=== PATIENT | female | born 1990 | race Caucasian/White ===

== ENCOUNTER 2017-10-16 15:58 | Emergency (ER) | payer BC ==
[2017-10-16 16:10] VITALS: O2SAT 100
[2017-10-16] MEDS ORDERED: Sodium Chloride 0.9% 1000 ML 1,000 ML IV STA (16:31)
[2017-10-16] MEDS ORDERED: Sodium Chloride 0.9% 1000 ML 1,000 ML ONE (16:40)
--- NOTE | 2017-10-16 16:40 | ERPHSYRPT ---
- History of Present Illness Time Seen by Provider: 10/16/17 16:16 Source: patient Exam Limitations: no limitations Patient Subjective Stated Complaint: Pt states "I am 5 weeks and I noticed I had blood when I wiped and I am freaking out." Triage Nursing Assessment: Pt alert and oriented X 3, skin pwd. Pt ambulates with an upright steady gait, able to speak in clear full sentences. Physician History: Pt noticed mild vaginal "spotting". blood on wiping paper after urinating just before coming. Her last MP was on September 13. She is [id number], denies abdominal or pelvic pain, cramps, no back pain, urinary complaints, fever, nausea, vomiting or other complaints. Timing/Duration: today Activites at Onset: none Quality: other (denies) Pain Radiation: none Severity of Pain-Max: none Prior abdominal problems: none Sexual intercourse history: single partner Modifying Factors: Improves With: nothing Associated Symptoms: denies symptoms Allergies/Adverse Reactions: latex Allergy (Severe, Verified 10/16/17 16:11) Rash codeine Allergy (Verified 09/10/13 09:24) Home Medications: No Reportable Medications [No Reported Medications] 10/16/17 [History] Hx Tetanus, Diphtheria Vaccination/Date Given: No Hx Influenza Vaccination/Date Given: Yes Hx Pneumococcal Vaccination/Date Given: No - Review of Systems Constitutional: No Symptoms Genitourinary Symptoms: Vaginal Bleeding All Other Systems: Reviewed and Negative - Past Medical History Pertinent Past Medical History: Yes Neurological History: No Pertinent History ENT History: No Pertinent History Cardiac History: No Pertinent History Respiratory History: No Pertinent History Endocrine Medical History: No Pertinent History Musculoskeletal History: No Pertinent History GI Medical History: Other History: No Pertinent History Psycho-Social History: Depression - Past Surgical History Past Surgical History: Yes Neuro Surgical History: No Pertinent History Cardiac: No Pertinent History Respiratory: No Pertinent History Gastrointestinal: No Pertinent History Genitourinary: No Pertinent History Female Surgical History: No Pertinent History Other Surgical History: tonsils - Social History Smoking Status: Current every day smoker How long have you smoked: 13 years Exposure to second hand smoke: Yes Drug Use: none Patient Lives Alone: No - Female History Hx Last Menstrual Period: 09/13/2017 Hx Now: Yes Expected Date of Delivery: 06/20/18 - Nursing Vital Signs Nursing Vital Signs: Initial Vital Signs Temperature 98.9 F 10/16/17 16:03 Pulse Rate 113 H 10/16/17 16:03 Respiratory Rate 16 10/16/17 16:03 Blood Pressure 122/84 10/16/17 16:03 O2 Sat by Pulse Oximetry 100 10/16/17 16:03 Pain Scale Pain Intensity 0 - Physical Exam General Appearance: no apparent distress Eye Exam: eyes nml inspection Ears, Nose, Throat Exam: normal ENT inspection Neck Exam: normal inspection, non-tender, supple Respiratory Exam: normal breath sounds, lungs clear, airway intact, No chest tenderness Cardiovascular Exam: regular rate/rhythm, normal heart sounds, normal peripheral pulses, No murmur Gastrointestinal/Abdomen Exam: soft, normal bowel sounds, No tenderness, No distention, No mass, No guarding, No ecchymosis Pelvic Exam: normal external exam, other (normal exam, cultures done.), No adnexal tenderness, No adnexal mass, No mass, No cervical motion tenderness, No vaginal bleeding, No uterine tenderness, No vaginal discharge Back Exam: normal inspection, No CVA tenderness Extremity Exam: normal inspection Neurologic Exam: alert, oriented x 3, normal mood/affect Skin Exam: normal color, warm, dry, No rash Lymphatic Exam: No adenopathy SpO2 Interpretation: normal SpO2: 100 Oxygen Delivery: Room Air - Course Nursing assessment & vital signs reviewed: Yes - Radiology Ultrasound Exam OB Ultrasound: Other (no visible ) Ordered Tests: Active Orders 24 hr Category Date Time Status IV Insertion STAT Care 10/16/17 16:31 Active NPO (ED) STAT Care 10/16/17 16:31 Active OB <14 WKS 1ST GESTATION [US] Stat Exams 10/16/17 17:00 Taken CBC W DIFF Stat Lab 10/16/17 16:31 Completed CMP Stat Lab 10/16/17 16:31 Completed CULTURE,URINE Stat Lab 10/16/17 15:00 Received HCG, Quantitative (Inhouse) Stat Lab 10/16/17 16:31 Completed Manual Differential NC Stat Lab 10/16/17 16:31 Completed UA W/ MICROSCOPIC Stat Lab 10/16/17 15:00 Completed Urine Triage Profile Stat Lab 10/16/17 17:00 Completed Medication Summary Discontinued Medications Generic Name Dose Route Start Last Admin Trade Name Freq PRN Reason Stop Dose Admin Sodium Chloride 1,000 mls @ 999 mls/hr 10/16/17 16:31 10/16/17 16:49 Sodium Chloride 0.9% 1000 Ml IV 10/16/17 17:31 999 mls/hr .Q1H1M STA Administration Sodium Chloride Confirm 10/16/17 16:40 Sodium Chloride 0.9% 1000 Ml Administered 10/16/17 16:41 Dose 1,000 mls @ ud .ROUTE .STK-MED ONE Rho Immune Globulin 300 mcg 10/16/17 18:06 Rhogam Plus 300 Mcg IM 10/16/17 18:07 .ONCE ONE Lab/Rad Data: Laboratory Result Diagrams 10/16/17 16:31 10/16/17 16:31 Laboratory Results 10/16/17 10/16/17 10/16/17 Range/Units 17:00 16:45 16:31 WBC (4.0-10.5) K/mm3 RBC (4.1-5.4) M/mm3 Hgb (12.0-16.0) gm/dl Hct (35-47) % MCV (78-100) fl MCH (26-32) pg MCHC (32-36) g/dl RDW (11.5-14.0) % Plt Count (150-450) K/mm3 MPV (6-9.5) fl Segmented Neutrophils (36.0-66.0) % Band Neutrophils (0.0-2.0) % Lymphocytes (Manual) (24-44) % Monocytes (Manual) (0.0-12.0) % Atypical Lymphocytes % Platelet Estimate (NORMAL) RBC Morphology Sodium 140 (137-145) mmol/L Potassium 3.1 L (3.5-5.1) mmol/L Chloride 105 (98-107) mmol/L Carbon Dioxide 25 (22-30) mmol/L Anion Gap 14.0 (5-15) MEQ/L BUN 9 (7-17) mg/dL Creatinine 0.62 (0.52-1.04) mg/dL Estimated GFR > 60.0 ML/MIN Glucose 120 H (74-106) mg/dL Calcium 9.2 (8.4-10.2) mg/dL Total Bilirubin 0.30 (0.2-1.3) mg/dL AST 27 (14-36) U/L ALT 8 (0-35) U/L Alkaline Phosphatase 67 (38-126) U/L Serum Total Protein 7.1 (6.3-8.2) g/dL Albumin 4.2 (3.5-5.0) g/dL Beta HCG, Quant 226.78 mIU/ml Ur Collection Type Urine Color (YELLOW) Urine Appearance (CLEAR) Urine pH (5-6) Ur Specific [place] (1.005-1.025) Urine Protein (Negative) Urine Ketones (NEGATIVE) Urine Blood (0-5) Jude/ul Urine Nitrite (NEGATIVE) Urine Bilirubin (NEGATIVE) Urine Urobilinogen (0-1) mg/dL Ur Leukocyte Esterase (NEGATIVE) Urine Microscopic RBC (0-2) /HPF Urine Microscopic WBC (0-5) /HPF Ur Epithelial Cells (FEW) /HPF Urine Bacteria (NEGATIVE) /HPF Urine Mucus (NEGATIVE) /HPF Urine Culture Reflexed (NO) Urine Glucose (NEGATIVE) mg/dL Urine Opiates Level NEGATIVE (NEGATIVE) Ur Methadone NEGATIVE (NEGATIVE) Urine Barbiturates NEGATIVE (NEGATIVE) Ur Phencyclidine (PCP) NEGATIVE (NEGATIVE) Urine Amphetamine NEGATIVE (NEGATIVE) U Benzodiazepine Level NEGATIVE (NEGATIVE) Urine Cocaine NEGATIVE (NEGATIVE) Urine Marijuana (THC) NEGATIVE (NEGATIVE) Specimen Received ABO Group O Rh Factor NEGATIVE Antibody Screen NEGATIVE (NEGATIVE) 10/16/17 10/16/17 Range/Units 16:31 15:00 WBC 8.5 (4.0-10.5) K/mm3 RBC 4.09 L (4.1-5.4) M/mm3 Hgb 12.9 (12.0-16.0) gm/dl Hct 38.8 (35-47) % MCV 94.9 (78-100) fl MCH 31.5 (26-32) pg MCHC 33.2 (32-36) g/dl RDW 12.4 (11.5-14.0) % Plt Count 232 (150-450) K/mm3 MPV 10.9 H (6-9.5) fl Segmented Neutrophils 63 (36.0-66.0) % Band Neutrophils 1 (0.0-2.0) % Lymphocytes (Manual) 29 (24-44) % Monocytes (Manual) 5 (0.0-12.0) % Atypical Lymphocytes 2 % Platelet Estimate NORMAL (NORMAL) RBC Morphology NORMAL Sodium (137-145) mmol/L Potassium (3.5-5.1) mmol/L Chloride (98-107) mmol/L Carbon Dioxide (22-30) mmol/L Anion Gap (5-15) MEQ/L BUN (7-17) mg/dL Creatinine (0.52-1.04) mg/dL Estimated GFR ML/MIN Glucose (74-106) mg/dL Calcium (8.4-10.2) mg/dL Total Bilirubin (0.2-1.3) mg/dL AST (14-36) U/L ALT (0-35) U/L Alkaline Phosphatase (38-126) U/L Serum Total Protein (6.3-8.2) g/dL Albumin (3.5-5.0) g/dL Beta HCG, Quant mIU/ml Ur Collection Type CLEAN CATCH Urine Color YELLOW (YELLOW) Urine Appearance CLOUDY (CLEAR) Urine pH 5.0 (5-6) Ur Specific [place] 1.020 (1.005-1.025) Urine Protein 50 (Negative) Urine Ketones SMALL (NEGATIVE) Urine Blood 50 (0-5) Jude/ul Urine Nitrite NEGATIVE (NEGATIVE) Urine Bilirubin NEGATIVE (NEGATIVE) Urine Urobilinogen NORMAL (0-1) mg/dL Ur Leukocyte Esterase 1+ (NEGATIVE) Urine Microscopic RBC 2-5 (0-2) /HPF Urine Microscopic WBC 2-5 (0-5) /HPF Ur Epithelial Cells MODERATE (FEW) /HPF Urine Bacteria FEW (NEGATIVE) /HPF Urine Mucus MANY (NEGATIVE) /HPF Urine Culture Reflexed YES (NO) Urine Glucose NEGATIVE (NEGATIVE) mg/dL Urine Opiates Level (NEGATIVE) Ur Methadone (NEGATIVE) Urine Barbiturates (NEGATIVE) Ur Phencyclidine (PCP) (NEGATIVE) Urine Amphetamine (NEGATIVE) U Benzodiazepine Level (NEGATIVE) Urine Cocaine (NEGATIVE) Urine Marijuana (THC) (NEGATIVE) Specimen Received 10/16/17 1700 ABO Group Rh Factor Antibody Screen (NEGATIVE) - Progress Progress: improved Air Movement: good Progress Note: 10/16/17 18:36 Pt has been pain free, stable, afebrile, no sign of bleeding. I called Dr Quintero in [place] ( he is covering patient's Fruit Thinner Machine Operator, Dr Patel) discussed our findings, and patient's current condition, he agreed with our plan to discharge her after she was given 300 microgram Rhogam im. to follow up with her next Beta HCG level in 2-3 days with her Fruit Thinner Machine Operator. I informed patient and her mother about these, they agreed. Counseled pt/family regarding: lab results, diagnosis, need for follow-up, rad results - Departure Time of Disposition: 18:39 Departure Disposition: Home Clinical Impression: Vaginal bleeding affecting early Condition: Stable Critical Care Time: No Referrals: CY RAINEY [Primary Care Provider] - Additional Instructions: Rest x 2-3 days, nothing vaginally! Follow up with Fruit Thinner Machine Operator in 2-3 days with Beta HCG level, return if severe pain, bleeding!
[2017-10-16 16:47] LABS: Hematocrit 38.8 % (35-47); Hemoglobin 12.9 gm/dl (12.0-16.0); Mean Cell Volume 94.9 fl (78-100); Mean Corpuscular Hemoglobin 31.5 pg (26-32); Mean Corpuscular Hgb Concent. 33.2 g/dl (32-36); Mean Platelet Volume 10.9 fl (6-9.5); Platelet Count 232 K/mm3 (150-450); Red Blood Count 4.09 M/mm3 (4.1-5.4); Red Cell Distribution Width 12.4 % (11.5-14.0); White Blood Count 8.5 K/mm3 (4.0-10.5)
[2017-10-16 16:49] LABS: ALBUMIN 4.2 g/dL (3.5-5.0); ALKALINE PHOSPHATASE 67 U/L (38-126); BLOOD UREA NITROGEN 9 mg/dL (7-17); CHLORIDE 105 mmol/L (98-107); Calcium 9.2 mg/dL (8.4-10.2); Carbon Dioxide 25 mmol/L (22-30); Creatinine 1 0.62 mg/dL (0.52-1.04); Glucose 120 mg/dL (74-106); Potassium 3.1 mmol/L (3.5-5.1); SGOT/AST 27 U/L (14-36); SGPT/ALT 8 U/L (0-35); SODIUM 140 mmol/L (137-145); Total Protein 7.1 g/dL (6.3-8.2)
[2017-10-16 17:05] LABS: HCG, Quantitative (Inhouse) 226.78 mIU/ml
[2017-10-16 17:19] LABS: Appearance CLOUDY (CLEAR); Bilirubin NEGATIVE (NEGATIVE); Blood 50 Ery/ul (0-5); Glucose NEGATIVE (NEGATIVE); Ketones SMALL (NEGATIVE); Leukocyte Esterase 1+ (NEGATIVE); Nitrite NEGATIVE (NEGATIVE); Protein,Urine Dip 50 (Negative); Urobilinogen NORMAL mg/dL (0-1)
[2017-10-16 17:20] LABS: Bacteria FEW /HPF (NEGATIVE); Epithelial Cells MODERATE /HPF (FEW); Mucus MANY /HPF (NEGATIVE)
[2017-10-16 17:22] LABS: Amphetamine,Urine NEGATIVE (NEGATIVE); Barbiturate,Urine NEGATIVE (NEGATIVE); Benzodiazepine,Urine NEGATIVE (NEGATIVE); Cocaine,Urine NEGATIVE (NEGATIVE); Methadone,Urine NEGATIVE (NEGATIVE); Opiate,Urine NEGATIVE (NEGATIVE); PCP,Urine NEGATIVE (NEGATIVE); THC,Urine NEGATIVE (NEGATIVE)
[2017-10-16 17:43] LABS: ATYPICAL LYMPHS 2 %; BAND 1 % (0.0-2.0); Lymphocytes 29 % (24-44); Monocyte 5 % (0.0-12.0); Neutrophils 63 % (36.0-66.0); Platelet Estimate NORMAL (NORMAL); Total Cells Counted 100
[2017-10-16 17:55] LABS: ABO TYPING O; Antibody Screen NEGATIVE (NEGATIVE); RH TYPING NEGATIVE
[2017-10-16] MEDS ORDERED: Rhogam Plus 300 MCG IM ONE (18:06)
--- NOTE | 2017-10-16 18:36 | XRAY ---
Indication: Vaginal bleeding. Patient reports 4-5 weeks . Two-dimensional transvaginal early OB ultrasound performed. Comparison: None for this . Uterus is anteverted measuring 10.6 x 5.3 x 8.1 cm. Myometrium homogeneous. Endometrial stripe measures 7.1 mm in thickness. No endometrial cavity mass or fluid collection. Right ovary measures 2.9 x 3.7 x 2.0 cm and the left measures 5.0 x 2.6 x 2.6 cm. Normal color perfusion bilaterally. No suspicious adnexal mass. Tiny cul-de-sac fluid presumed from rupture/leaking cyst. Impression: 1. No sonographic evidence for intrauterine or ectopic . 2. Tiny cul-de-sac fluid presumed from rupture/leaking cyst. 3. Remaining transvaginal pelvic sonogram is negative. Comment: Preliminary report was given.
[2017-10-16 19:09] VITALS: BP 120/78; PULSE 90
== END 2017-10-16 19:10 | disposition home or self-care (01) ==
LOC: ED 15:58
DX: O46.91 Antepartum hemorrhage, unspecified, first trimester (principal); Z3A.00 Weeks of gestation of pregnancy not specified
CPT/HCPCS: 36000; 36415; 76801; 80053; 80307; 81000; 84702; 85025; 86850; 86900; 86901; 87086; 96360; 96372; 99283; 99284; J2790

== ENCOUNTER 2020-09-06 09:12 | Day surgery (SDC) | payer BC ==
--- NOTE | 2020-09-06 08:42 | HP ---
DATE OF SURGERY: 09/06/2020 HISTORY OF PRESENT ILLNESS: The patient is a 30 year-old who developed hemorrhoids after second child. She had some rectal bleeding sometimes for a few days. She has recurrent rectal bleeding. She is in need of colonoscopy to rule out other etiology of bleeding as well as possible internal hemorrhoid banding if indicated. PAST MEDICAL HISTORY: She denies any chronic illnesses. PAST SURGICAL HISTORY: She denies any prior endoscopy. MEDICATIONS: None on a regular basis. ALLERGIES: CODEINE. LATEX. FAMILY HISTORY: Negative for colon cancer. SOCIAL HISTORY: No current smoking or alcohol abuse. REVIEW OF SYSTEMS: Fourteen systems reviewed negative or noncontributory as above and per preadmission questionnaire. PHYSICAL EXAMINATION: GENERAL: No acute distress. HEENT: Sclerae nonicteric. NECK: No JVD. CHEST: Equal excursion, nonlabored breathing. CVS: Regular rate and rhythm. ABDOMEN: Soft. No peritoneal signs. EXTREMITIES: No significant edema. NEURO: Alert, oriented, moving extremities symmetrically. RECTAL: Some external tags, no external mass. PSYCH: Appropriate mood and affect. IMPRESSION: Rectal bleeding, history of some hemorrhoid problems in the past. She is in need of colonoscopy to rule out polyps, colitis, inflammatory bowel disease or other etiology as well as possible consideration of possible internal hemorrhoid banding at that time. She was shown the risk sheet and explained the procedure in detail including but not limited to bleeding or infection, risk of bowel injury or perforation possibly requiring open procedure, risk of missed or nondiagnosis or incomplete exam possibly requiring barium enema, other studies or procedures, general risk of anesthesia or sedation. Regarding the possible internal hemorrhoid banding general risk of bleeding or infection, risk of aches, pain, burning, risk of sensory, spasm or irritability, risk of transient continence issues, risk of progression of hemorrhoidal disease possibly requiring other procedures or banding or excision, general risk of aches and pains. She is agreeable to the planned procedure, will proceed with colonoscopy possible internal hemorrhoid banding as an outpatient under MAC anesthesia.
[~2020-09-06 09:12] MED LIST: Lactated Ringers 1,000 ML IV SCH
[2020-09-06] MEDS ORDERED: Lactated Ringers 1,000 ML IV ONE (09:33)
[2020-09-06] MEDS: Versed 2 MG/2 ML Injection IV PRN ×2 (09:56→10:59)
[2020-09-06] MEDS ORDERED: DIPRIVAN 200 MG/20 ML IV ONE ×2 (11:25→11:42)
[2020-09-06] MEDS ORDERED: SUBLIMAZE 100 MCG/2 ML ONE (11:25)
[2020-09-06] MEDS ORDERED: Xylocaine-Mpf 2% 5 Ml Vial ONE (11:26)
[2020-09-06] MEDS ORDERED: Zofran 4 MG/2 ML VIAL ONE (11:45)
[2020-09-06 12:43] VITALS: O2SAT 97
[2020-09-06 12:59] VITALS: BP 117/59; PULSE 80
--- NOTE | 2020-09-07 07:53 | OP ---
SURGERY DATE/TIME: 09/06/2020 1129 PREOPERATIVE DIAGNOSIS: Rectal bleeding unclear etiology and has some internal and external hemorrhoids. POSTOPERATIVE DIAGNOSES: 1) Fair bowel prep. 2) ASA Class I. 3) Photo documented appendiceal orifice and ileocecal valve. 4) Grade II internal hemorrhoids requiring banding as she is having rectal bleeding from it. PROCEDURES: 1) Colonoscopy to cecum with random cold biopsies of colon to evaluate for macroscopic colitis. 2) Internal hemorrhoid banding x3 columns. SURGEON: Dr. Nolan Martinez. [facility] RN: Nilesh Potter, Medical Student III. ANESTHESIA: MAC. ESTIMATED BLOOD LOSS: Minimal. INDICATIONS: As noted above. Risks and benefits explained in detail but not limited to and consent obtained. DESCRIPTION OF PROCEDURE AND FINDINGS: The patient is taken to the operating room. MAC anesthesia introduced. After official time out and no disagreement with planned procedure, digital rectal exam revealed some internal and external hemorrhoids. There was no active bleeding at the moment. Video colonoscope inserted and passed up the tortuous sigmoid, descending, transverse and ascending colon. With external pressure the scope was able to be passed around to the cecum. Appendiceal orifice and valve well visualized and photo documented. The scope is then carefully withdrawn over the next eight minutes. There were no signs of any large polyps, masses or obstructing lesions. Given her symptoms cold biopsies taken to evaluate for microscopic colitis. Otherwise again no signs of any large polyps, masses or obstructing lesions. Back to the rectum on retroflex, she did have some internal and external hemorrhoids. The picture from the retroflexion did not seem to be impressive but once the scope was withdrawn and placed lubricated half-kent retractor she definitely had significant grade II-III internal and external hemorrhoids. It was felt she warranted trial banding. First starting with the left lateral, the suction wafer mounter was used at the top of the hemorrhoid. A good tuft of tissue noted this is again repeated in the right posterior position and then again on the right anterior position with a good tuft of tissue in each location using the suction wafer mounter. The patient tolerated the procedure well. There were no immediate complications. There is no family here available to discuss the findings with at this time. I will see her back in the office next week. She is to continue a high fiber diet and/or Metamucil or Fibercon-type to titrate soft bulky bowel movements. She can use some sitz baths PRN. She may have some initial rectal bleeding that usually improves over time. I will see her back in the office next week.
== END 2020-09-06 13:00 | disposition home or self-care (01) ==
LOC: SDC 09:12
PROVIDERS: ATTEND Surgery
DX: K64.1 Second degree hemorrhoids (principal); K62.5 Hemorrhage of anus and rectum
CPT/HCPCS: 84703; 88305; J2250; J2405; J2704; J3010

== ENCOUNTER 2022-03-17 14:47 | Emergency (ER) | payer BC ==
[2022-03-17 15:35] VITALS: BP 129/79
--- NOTE | 2022-03-17 16:09 | ERPHSYRPT ---
- History of Present Illness Time Seen by Provider: 03/17/22 14:53 Source: patient Exam Limitations: no limitations Patient Subjective Stated Complaint: patient states she saw Dr. Parmar last week and had labs drawn. They called her today and said her hemaglobin was 7.1 a nd to come to ER because she may need a transfusion. Triage Nursing Assessment: Patient is alert and oriented. Ambulated to ER Room with no difficulty. Kirsty has no complaints. Physician History: 31 years old female presented in the ER after she got a call from her doctor about blood work done almost 2 weeks ago that her hemoglobin is 7.1. Patient denies any chest pain palpitations, shortness of breath, feeling dizzy lightheaded. She denies heavy menstrual's cycle, epigastric discomfort, taking excessive amounts of NSAIDs or dark stool. Denies excessively feeling weak fatigued or tiredness. 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 - Vaccination Dates Date of 2cond Vaccination (if applicable): n/a - Review of Systems Constitutional: No Symptoms Eyes: No Symptoms Ears, Nose, & Throat: No Symptoms Respiratory: No Symptoms Cardiac: No Symptoms Abdominal/Gastrointestinal: No Symptoms Genitourinary Symptoms: No Symptoms Musculoskeletal: No Symptoms Skin: No Symptoms Neurological: No Symptoms Psychological: No Symptoms Endocrine: No Symptoms Hematologic/Lymphatic: No Symptoms Immunological/Allergic: No Symptoms - Past Medical History Pertinent Past Medical History: Yes Neurological History: No Pertinent History ENT History: No Pertinent History Cardiac History: No Pertinent History Respiratory History: No Pertinent History Endocrine Medical History: No Pertinent History Musculoskeletal History: No Pertinent History GI Medical History: Other History: No Pertinent History Psycho-Social History: Anxiety, Depression Female Reproductive Disorders: No Pertinent History Other Medical History: hemorrhoids, sometimes bleeding, constipation - Past Surgical History Past Surgical History: Yes Neuro Surgical History: No Pertinent History Cardiac: No Pertinent History Respiratory: No Pertinent History Gastrointestinal: No Pertinent History Genitourinary: No Pertinent History Musculoskeletal: No Pertinent History Female Surgical History: No Pertinent History Other Surgical History: EGD for ulcers about 7 years ago - Social History Smoking Status: Former smoker How long have you smoked: 13 years Exposure to second hand smoke: No Drug Use: none Patient Lives Alone: Yes (spouse, children) - Female History Hx Last Menstrual Period: 02/24/22 Hx Now: No - Nursing Vital Signs Nursing Vital Signs: Initial Vital Signs Pulse Rate 80 03/17/22 15:00 Respiratory Rate 20 03/17/22 15:00 Blood Pressure 129/79 03/17/22 15:00 O2 Sat by Pulse Oximetry 100 03/17/22 15:00 Pain Scale Pain Intensity 0 - Physical Exam General Appearance: no apparent distress, alert Eye Exam: PERRL/EOMI Ears, Nose, Throat Exam: normal ENT inspection, TMs normal, pharynx normal Neck Exam: normal inspection, non-tender, supple, full range of motion Respiratory Exam: normal breath sounds, lungs clear Cardiovascular Exam: regular rate/rhythm, normal heart sounds Gastrointestinal/Abdomen Exam: soft, normal bowel sounds, No tenderness Back Exam: normal inspection, normal range of motion Extremity Exam: normal inspection, normal range of motion Neurologic Exam: alert, oriented x 3, cooperative Skin Exam: normal color SpO2 Interpretation: normal SpO2: 100 O2 Delivery: Room Air Ordered Tests: Active Orders 24 hr Category Date Time Status CBC W DIFF Stat Lab 03/17/22 16:05 Completed CMP Stat Lab 03/17/22 16:36 Completed PROTIME WITH INR Stat Lab 03/17/22 16:36 Completed PTT Stat Lab 03/17/22 16:36 Completed Medication Summary Generic Name Dose Route Start Last Admin Trade Name Viry PRN Reason Stop Dose Admin Ferrous Sulfate 325 mg 03/18/22 17:39 Ferrous Sulfate 325 Mg Tablet PO 03/18/22 17:40 STAT ONE Polysaccharide Iron Complex 150 mg 03/18/22 17:38 03/17/22 17:39 Iron Polysaccharides Complex 150 Mg Capsule PO 03/18/22 17:39 Not Given STAT ONE Lab/Rad Data: Laboratory Result Diagrams 03/17/22 16:05 03/17/22 16:36 Laboratory Results 03/17/22 03/17/22 03/17/22 Range/Units 16:36 16:36 16:05 WBC 6.9 (4.0-10.5) x10^3/uL RBC 3.52 L (4.1-5.4) x10^6/uL Hgb 7.1 L (12.0-16.0) g/dL Hct 27.6 L (35-47) % MCV 78.4 (78-100) fL MCH 20.2 L (26-32) pg MCHC 25.7 L (32-36) g/dL RDW 16.1 H (11.5-14.0) % Plt Count 368 (150-450) x10^3/uL MPV 9.7 (7.5-11.0) fL Gran % 65.4 (36.0-66.0) % Immature Gran % (Auto) 0.3 (0.00-0.4) % Nucleat RBC Rel Count 0.0 (0.00-0.1) % Eos # (Auto) 0.04 (0-0.5) x10^3/uL Immature Gran # (Auto) 0.02 (0.00-0.03) x10^3u/L Absolute Lymphs (auto) 1.74 (1.0-4.6) x10^3/uL Absolute Monos (auto) 0.53 (0.0-1.3) x10^3/uL Absolute Nucleated RBC 0.00 (0.00-0.01) x10^3u/L Lymphocytes % 25.3 (24.0-44.0) % Monocytes % 7.7 (0.0-12.0) % Eosinophils % 0.6 (0.00-5.0) % Basophils % 0.7 (0.0-0.4) % Absolute Granulocytes 4.50 (1.4-6.9) x10^3/uL Basophils # 0.05 (0-0.4) x10^3/uL PT 10.4 (9.4-12.5) SECONDS INR 0.98 (0.8-3.0) APTT 24.4 L (25.1-36.5) SECONDS Sodium 139 (137-145) mmol/L Potassium 4.2 (3.5-5.1) mmol/L Chloride 105 (98-107) mmol/L Carbon Dioxide 28 (22-30) mmol/L Anion Gap 11.3 (5-15) MEQ/L BUN 9 (7-17) mg/dL Creatinine 0.56 (0.52-1.04) mg/dL Estimated GFR > 60.0 ML/MIN Glucose 108 H (74-106) mg/dL Calcium 8.8 (8.4-10.2) mg/dL Total Bilirubin 0.30 (0.2-1.3) mg/dL AST 18 (14-36) U/L ALT 10 (0-35) U/L Alkaline Phosphatase 73 (38-126) U/L Serum Total Protein 7.5 (6.3-8.2) g/dL Albumin 4.4 (3.5-5.0) g/dL - Progress Progress: unchanged Progress Note: 03/17/22 17:42 Patient is asymptomatic. Recheck hemoglobin is 7.[address]iscuss[address]. Mcnamara, do not think patient needs transfusion and recommended starting on iron pills and she is given first dose in here. She is advised not to take any NSAIDs and outpatient follow-up with primary care and hematology. Discussed signs symptoms of worsening needing return to ER which she seems understanding. Discussed with .: Samanta Counseled pt/family regarding: lab results, diagnosis, need for follow-up - Departure Departure Disposition: Home Clinical Impression: Anemia Condition: Stable Critical Care Time: No Referrals: LG MCNAMARA MD [Primary Care Provider] - Follow Up with PCP/3 days LASHONDA HARDEN [COURTESY STAFF] - Follow up/PCP as directed (call for appointment ) Instructions: Anemia Caused by Low Iron, Adult (DC) Additional Instructions: Take high-protein diet. Do not take any NSAIDs. Follow-up with primary care and hematology/oncology for reevaluation and further work-up. Return to ER if having difficulty breathing, chest pain, dizziness, lightheadedness, dark stool, heavy cycles etc. Prescriptions: Ferrous Sulfate 325 mg [Feosol 325 mg] 325 mg PO DAILY 30 Days #30 tablet
[2022-03-17 16:16] LABS: Basophil (Absolute #) 0.05 x10^3/uL (0-0.4); Eosinophil % 0.6 % (0.00-5.0); Eosinophil (Absolute #) 0.04 x10^3/uL (0-0.5); Hematocrit 27.6 % (35-47); Hemoglobin 7.1 g/dL (12.0-16.0); Lymphocyte (Absolute #) 1.74 x10^3/uL (1.0-4.6); Lymphocytes % 25.3 % (24.0-44.0); Mean Cell Volume 78.4 fL (78-100); Mean Corpuscular Hemoglobin 20.2 pg (26-32); Mean Corpuscular Hgb Concent. 25.7 g/dL (32-36); Mean Platelet Volume 9.7 fL (7.5-11.0); Monocyte (Absolute #) 0.53 x10^3/uL (0.0-1.3); Monocytes % 7.7 % (0.0-12.0); Neutrophil % 65.4 % (36.0-66.0); Platelet Count 368 x10^3/uL (150-450); Red Blood Count 3.52 x10^6/uL (4.1-5.4); Red Cell Distribution Width 16.1 % (11.5-14.0); White Blood Count 6.9 x10^3/uL (4.0-10.5)
[2022-03-17 16:55] LABS: ALBUMIN 4.4 g/dL (3.5-5.0); ALKALINE PHOSPHATASE 73 U/L (38-126); ANION GAP 11.3 MEQ/L (5-15); BLOOD UREA NITROGEN 9 mg/dL (7-17); CHLORIDE 105 mmol/L (98-107); Calcium 8.8 mg/dL (8.4-10.2); Carbon Dioxide 28 mmol/L (22-30); Creatinine 1 0.56 mg/dL (0.52-1.04); EST GLOMERULAR FILTRATION RATE > 60.0 ML/MIN; Glucose 108 mg/dL (74-106); Potassium 4.2 mmol/L (3.5-5.1); SGOT/AST 18 U/L (14-36); SGPT/ALT 10 U/L (0-35); SODIUM 139 mmol/L (137-145); Total Protein 7.5 g/dL (6.3-8.2)
[2022-03-17 16:56] LABS: INR 0.98 (0.8-3.0); PROTIME 10.4 SECONDS (9.4-12.5); PTT 24.4 SECONDS (25.1-36.5)
[2022-03-17] MEDS ORDERED: FEOSOL 325 MG ONE (17:43)
[2022-03-17 17:51] VITALS: PULSE 76; O2SAT 98
[2022-03-17 20:11] LABS: Slide Review 1 YES
[2022-03-18] MEDS ORDERED: FERREX 150 PO ONE (17:38)
[2022-03-18] MEDS ORDERED: FEOSOL 325 MG PO ONE (17:39)
== END 2022-03-17 17:58 | disposition home or self-care (01) ==
LOC: ED 14:47
DX: D64.9 Anemia, unspecified (principal)
CPT/HCPCS: 36415; 80053; 85025; 85610; 85730; 99282; A9270-GY

== ENCOUNTER 2022-08-21 11:45 | Day surgery (SDC) | payer BC ==
--- NOTE | 2022-08-21 08:23 | HP ---
DATE OF SURGERY: 08/21/2022 HISTORY OF PRESENT ILLNESS: The patient had some anemia. Last colonoscopy a year and a half to couple years ago. Family history negative for colon cancer. She has some rectal bleeding now, some loose stools and constipation, some anemia. History of ulcers in the past. PAST MEDICAL HISTORY: Anxiety, depression. Ulcers. PAST SURGICAL HISTORY: EGD. MEDICATIONS: Ferrous sulfate. She takes Mounjaro injections. ALLERGIES: CODEINE. LATEX (RASH). FAMILY HISTORY: Heart disease, hypertension, diabetes. SOCIAL HISTORY: Former smoker. REVIEW OF SYSTEMS: Fourteen systems reviewed. No chest pain or palpitations. Other systems negative or noncontributory as above and per preadmission questionnaire. PHYSICAL EXAMINATION: GENERAL: No acute distress. HEENT: Sclerae nonicteric. NECK: No JVD. CHEST: Equal excursion, nonlabored breathing. CVS: Regular rate and rhythm. ABDOMEN: Soft. No peritoneal signs. EXTREMITIES: No significant edema. NEURO: Alert, oriented, moving extremities symmetrically. RECTAL: Deferred timed to endoscopy exam. PSYCH: Appropriate mood and affect. SKIN: Dry. IMPRESSION: Anemia. She has a history of ulcers in the past. She is in need of EGD and colonoscopy. She has had some hemorrhoid disease a while. She had been discussed options and preferred to consider possible internal hemorrhoid banding if indicated. She understands that this does not treat any external component. General risk of procedure of EGD, colonoscopy, possible internal hemorrhoid banding will be scheduled. General risk of bleeding or infection, risk of bowel injury or perforation, risk of missed or nondiagnosis or incomplete exam possibly requiring barium enema, other studies or procedures, general risk of anesthesia or sedation, risk of bowel prep, possibility of inability to diagnose the etiology of her anemia possibly requiring other referrals, testing or procedures. Regarding hemorrhoids possible progression of hemorrhoid disease possibly requiring other procedures, general risk of bleeding or infection, remote risk of wound infection possibly requiring diversion or other procedures. She understands and agrees to the planned procedure. She prefers to proceed with EGD, colonoscopy, possible internal hemorrhoid banding.
[2022-08-21] MEDS ORDERED: Lactated Ringers 1,000 ML IV ONE (12:33)
[2022-08-21] MEDS ORDERED: Versed 2 MG/2 ML Injection ONE (13:13)
[2022-08-21] MEDS ORDERED: DIPRIVAN 200 MG/20 ML IV ONE ×3 (13:13→13:41)
[2022-08-21] MEDS ORDERED: ULTRAM 50 MG PO ONE (14:39)
[2022-08-21 14:49] VITALS: O2SAT 98
[2022-08-21 14:56] VITALS: BP 90/62; PULSE 66
--- NOTE | 2022-08-22 09:23 | OP ---
SURGERY DATE/TIME: 08/21/2022 1324 PREOPERATIVE DIAGNOSIS: Anemia, internal and external hemorrhoids, some rectal bleeding, prior history of some ulcers in the past, need for upper and lower endoscopy. POSTOPERATIVE DIAGNOSES: 1) ASA Class I. 2) Minimal to mild gastritis. 3) Normal appearing esophagus. 4) Normal appearing possible duodenum. 5) Grade 2 to 3 internal and external hemorrhoids. PROCEDURES: 1) EGD with cold biopsy of the antrum for Helicobacter pylori. 2) Colonoscopy to terminal ileum. 3) Retrograde ileoscopy. 4) Cold biopsies of colon to evaluate for microscopic colitis. 5) Internal hemorrhoid banding x3 columns. SURGEON: Dr. Nolan Martinez. ANESTHESIA: MAC. ESTIMATED BLOOD LOSS: Minimal. INDICATIONS: As noted above. Risks and benefits explained in detail and not limited to and consent obtained. DESCRIPTION OF PROCEDURE AND FINDINGS: The patient is taken to the endoscopy room. MAC anesthesia introduced. After official time out and no disagreement with planned procedure, bite block positioned. Video gastroscope easily passed down the esophagus to the patent pylorus to the third portion of the duodenum. On careful withdrawal the third, second and first portions of duodenum grossly unremarkable. No signs of any ulcer. No source of any obvious anemia. The scope pulled back in the stomach. She did have some minimal to mild chronic gastritis. Cold biopsy taken to evaluate for Helicobacter pylori. Good hemostasis noted. There were no signs of any ulcers or other mucosal lesions. On retroflex the gastroesophageal junction snug against the scope. The scope is straightened. The gastroesophageal junction 40 cm. Z-line was crisp. The esophagus is unremarkable. No signs of any masses or any other mucosal lesions. The scope is withdrawn. Attention is then turned to colonoscopy. Digital rectal exam revealed some internal and external hemorrhoids. Video colonoscope inserted and passed up the tortuous sigmoid, descending, transverse, ascending colon. Prep overall was good. The scope was able to pass through the terminal ileum. Retrograde ileoscopy is performed which was grossly unremarkable. No signs of any masses or lesions. Appendiceal orifice and valve were photo documented. The scope was carefully withdrawn over the next nine minutes suctioning liquidy stool out. There were no signs of any large polyps, masses or obstructing lesions. She did have a little bit of pinkness of the mucosa. Random cold biopsies were taken to evaluate for microscopic colitis to rule out other causes of her anemia. The patient tolerated the procedure well. On retroflex, she did have some internal and external hemorrhoids. The scope is straightened and withdrawn. The half-kent retractor carefully inserted. It was felt that his Grade 2-3 internal and external hemorrhoids warranted a trial of banding as she had requested. There had been no other obvious sources of her rectal bleeding. Therefore starting left lateral, half-kent retractor inserted. The suction formulator compounder carefully grasped the top edge of the hemorrhoid with good tuft of tissue noted. This was then repeated in the right posterior position. A good tuft of tissue and the band fired and again right in position here. It was a little bit smaller marginal but tuft of tissue is noted. Appeared to have good hemostasis. The patient tolerated the procedure well. There were no immediate complications. Findings were discussed with the family out in the waiting room. I will see her back in the office next week. She is to continue high fiber diet and use Fibercon to titrate soft bulky stools. Avoid straining at the time of bowel movements.
== END 2022-08-21 15:10 | disposition home or self-care (01) ==
LOC: SDC 11:45
PROVIDERS: ATTEND Surgery
DX: K29.70 Gastritis, unspecified, without bleeding (principal); D64.9 Anemia, unspecified; K64.4 Residual hemorrhoidal skin tags; K64.8 Other hemorrhoids; K62.5 Hemorrhage of anus and rectum
CPT/HCPCS: 36415; 84703; J2250; J2704; A9270-GY

== ENCOUNTER 2024-02-13 21:53 | Emergency (ER) | payer BC, OTHER ==
[2024-02-13 23:39] VITALS: TEMP 98.2
--- NOTE | 2024-02-14 00:09 | ERPHSYRPT ---
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 Triage Nursing Assessment: Pt brought to ED by aunt c/o pressure and feels like there is something bulging out in the vagina. states she strated her period three days ago, vitals wnl, skin w/n/d, denies any pain, gait steady, Last BM was today, doesn't appear to be in any distress Physician History: 33-year-old female presents to our emergency department for evaluation of press ure in her pelvis and a bulging. Patient states that she observed something bulging out of her vagina today. Patient felt an abnormal sensation as though possible foreign body. Patient thought it could have been possibly a tampon. Patient denies feeling the sensation in the past. No siria pain no vaginal discharge no foul odor. Patient is in a monogamous relationship. No trauma. No fever. Patient otherwise feels well. She voices no other complaints or concerns at this time. No active pain at this time Portions of this note were created with voice recognition technology. There may be grammatical, spelling, punctuation or sound alike errors Timing/Duration: today Severity: moderate Modifying Factors: Improves With: nothing Associated Symptoms: denies symptoms Allergies/Adverse Reactions: latex Allergy (Severe, Verified 02/13/24 23:39) Rash codeine Allergy (Verified 02/13/24 23:39) does not remember reaction Home Medications: Dulaglutide [Trulicity] 0.75 mg SQ WEEKLY 02/13/24 [History] Phentermine HCl [Adipex-P] 37.5 tab PO DAILY 02/13/24 [History] Hx Tetanus, Diphtheria Vaccination/Date Given: No Hx Influenza Vaccination/Date Given: No Hx Pneumococcal Vaccination/Date Given: No Travel Risk - International Travel Have you traveled outside of the country in past 3 weeks: No - Emerging Infectious Disease Are you exhibiting symptoms associated with any current EIDs: No - Review of Systems Constitutional: No Symptoms, No Fever, No Chills Eyes: No Symptoms Ears, Nose, & Throat: No Symptoms Respiratory: No Symptoms, No Cough, No Dyspnea Cardiac: No Symptoms, No Chest Pain, No Edema, No Syncope Abdominal/Gastrointestinal: No Symptoms, No Abdominal Pain, No Nausea, No Vomiting, No Diarrhea Genitourinary Symptoms: No Symptoms, No Dysuria Musculoskeletal: No Symptoms, No Back Pain, No Neck Pain Skin: No Symptoms, No Rash Neurological: No Symptoms, No Dizziness, No Focal Weakness, No Sensory Changes Psychological: No Symptoms Endocrine: No Symptoms Hematologic/Lymphatic: No Symptoms Immunological/Allergic: No Symptoms All Other Systems: Reviewed and Negative - Past Medical History Pertinent Past Medical History: Yes Neurological History: No Pertinent History ENT History: No Pertinent History Cardiac History: No Pertinent History Respiratory History: No Pertinent History Endocrine Medical History: No Pertinent History Musculoskeletal History: No Pertinent History GI Medical History: GERD, Other History: No Pertinent History Psycho-Social History: Anxiety, Depression Female Reproductive Disorders: No Pertinent History Other Medical History: fatty liver - Past Surgical History Past Surgical History: Yes Neuro Surgical History: No Pertinent History Cardiac: No Pertinent History Respiratory: No Pertinent History Gastrointestinal: No Pertinent History Genitourinary: No Pertinent History Female Surgical History: No Pertinent History, Dilation & Curettage Other Surgical History: EGD - Female History Hx Last Menstrual Period: currently on period Hx Now: No - Social History Smoking Status: Former smoker How long have you smoked: 13 years Exposure to second hand smoke: Yes Drug Use: none Patient Lives Alone: No - Social Determinants of Health Will the patient participate in the screening: Yes Do you worry about a steady place to live?: Yes Do you have any problems with any of the following?: No known problems In the past 12 months,have you had to go without utilities?: No Transportation Issues: No Has anyone in your support network made you feel unsafe?: No Have you or anyone in your house had to go without enough: No - Nursing Vital Signs Nursing Vital Signs: Initial Vital Signs Temperature 98.2 F 02/13/24 23:21 Pulse Rate 99 H 02/13/24 23:21 Blood Pressure 126/92 02/13/24 23:21 O2 Sat by Pulse Oximetry 94 L 02/13/24 23:21 Pain Scale Pain Intensity 0 - Physical Exam General Appearance: no apparent distress, alert Eye Exam: PERRL/EOMI, eyes nml inspection Ears, Nose, Throat Exam: normal ENT inspection, TMs normal, pharynx normal, moist mucous membranes Neck Exam: normal inspection, non-tender, supple, full range of motion Respiratory Exam: normal breath sounds, lungs clear, airway intact, No respiratory distress Cardiovascular Exam: regular rate/rhythm, normal heart sounds, normal peripheral pulses Gastrointestinal/Abdomen Exam: soft, normal bowel sounds, No tenderness, No mass Pelvic Exam: normal external exam, No adnexal tenderness, No adnexal mass, No cervical motion tenderness, No vaginal bleeding, No uterine tenderness, No vaginal discharge Back Exam: normal inspection, normal range of motion, No CVA tenderness, No vertebral tenderness Extremity Exam: normal inspection, normal range of motion, pelvis stable Neurologic Exam: alert, oriented x 3, cooperative, normal mood/affect, nml cerebellar function, nml station & gait, sensation nml, No motor deficits Skin Exam: normal color, warm, dry, No rash Lymphatic Exam: No adenopathy SpO2 Interpretation: normal SpO2: 94 O2 Delivery: Room Air - Course Nursing assessment & vital signs reviewed: Yes - CT Exams Other CT Interpretation: Other (Per telemetry radiologist no acute findings. No foreign bodies. ) Ordered Tests: Active Orders 24 hr Category Date Time Status PELVIS WITHOUT CONTRAST [CT] Stat Exams 02/14/24 00:04 Completed UA W/RFX UR CULTURE Stat Lab 02/13/24 23:54 Completed Lab/Rad Data: Laboratory Results 02/13/24 02/13/24 02/13/24 Range/Units 23:54 00:02 00:02 Urine Color Yellow (Yellow) Urine Appearance Clear (Clear) Urine pH 6.0 (4.6-8.0) Ur Specific Osborn <=1.005 (1.005-1.030) Urine Protein Negative (Negative) Urine Glucose (UA) Negative (Negative) mg/dL Urine Ketones Negative (Negative) Urine Blood Negative (Negative) Urine Nitrite Negative (Negative) Urine Bilirubin Negative (Negative) Urine Urobilinogen 0.2 (0.2) mg/dL Ur Leukocyte Esterase Negative (Negative) U Hyaline Cast (Auto) NONE SEEN (0-2) /LPF Urine Microscopic RBC 3-5 (0-5) /HPF Urine Microscopic WBC 0-2 (0-5) /HPF Ur Epithelial Cells None Seen (None Seen) /HPF Urine Bacteria None Seen (None Seen) /HPF Urine Culture Reflexed NO (NO) Urine HCG, Qual NEGATIVE (NEGATIVE) Vaginal Natalia Group (NEGATIVE) Natalia species (NEGATIVE) Chlamydia DNA Probe NOT DETECTED (NEGATIVE) N.gonorrhoeae DNA Probe NOT DETECTED (NEGATIVE) T. vaginalis (PCR) (NEGATIVE) Bact vaginosis (PCR) (NEGATIVE) 02/13/24 Range/Units 00:02 Urine Color (Yellow) Urine Appearance (Clear) Urine pH (4.6-8.0) Ur Specific Osborn (1.005-1.030) Urine Protein (Negative) Urine Glucose (UA) (Negative) mg/dL Urine Ketones (Negative) Urine Blood (Negative) Urine Nitrite (Negative) Urine Bilirubin (Negative) Urine Urobilinogen (0.2) mg/dL Ur Leukocyte Esterase (Negative) U Hyaline Cast (Auto) (0-2) /LPF Urine Microscopic RBC (0-5) /HPF Urine Microscopic WBC (0-5) /HPF Ur Epithelial Cells (None Seen) /HPF Urine Bacteria (None Seen) /HPF Urine Culture Reflexed (NO) Urine HCG, Qual (NEGATIVE) Vaginal Natalia Group NOT DETECTED (NEGATIVE) Natalia species NOT DETECTED (NEGATIVE) Chlamydia DNA Probe (NEGATIVE) N.gonorrhoeae DNA Probe (NEGATIVE) T. vaginalis (PCR) NOT DETECTED (NEGATIVE) Bact vaginosis (PCR) NEGATIVE (NEGATIVE) - Progress Progress: improved Progress Note: 33-year-old female presents to our ED for evaluation of pelvic pressure. Patient think this likely felt what appeared to be a foreign body of some sort. Physical exam including pelvic exam was not remarkable. No foreign body observed. No prolapse no rectocele observed. Urinalysis not remarkable. Vaginal panel within normal limits. No STI observed. CT pelvis unremarkable as well. Patient remains asymptomatic. No indication for further workup. Patient referred to [facility] for further evaluation and treatment. Vital stable. Family at bedside. They voiced no other complaints concerns at this time. Portions of this note were created with voice recognition technology. There may be grammatical, spelling, punctuation or sound alike errors Complexity of problem addressed is moderate acute complicated. No critical care time. Complex of data reviewed and analyzed is moderate. Test ordered chest reviewed results analyzed and correlated clinically with history and physical exam. Risk of complication or risk of morbidity/mortality patient management is low. Vital stable. Time spent to discharge patient is approximately 15 minutes. Plan of care established for shared decision making. No social determinants of health present impede follow-up. Portions of this note were created with voice recognition technology. There may be grammatical, spelling, punctuation or sound alike errors 02/14/24 02:05 Counseled pt/family regarding: diagnosis, need for follow-up - Departure Departure Disposition: Home Clinical Impression: Pelvic pressure in female Condition: Stable Critical Care Time: No Referrals: LG MCNAMARA MD [Primary Care Provider] - Follow up/PCP as directed GRACE CALDERA DO [ACTIVE STAFF] - Follow up/PCP as directed Additional Instructions: Discharge/Care Plan RICHARDSON SYED was seen on 02/14/24 in the Emergency Room. The patient was counseled regarding Diagnosis,Lab results, Imaging studies, need for follow up and when to return to the Emergency Room. Prescriptions given: Discharge Note I have spoken with the patient and/or caregivers. I have explained the patient's condition, diagnosis and treatment plan based on the information available to me at this time. I have answered the patient's and/or caregiver's questions and addressed any concerns. The patient and/or caregivers have as good understanding of the patient's diagnosis, condition and treatment plan as can be expected at this point. The vital signs have been stable. The patient's condition is stable and appropriate for discharge from the emergency department. The patient will pursue further outpatient evaluation with the primary care physician or other designated or consulting physician as outlined in the discharge instructions. The patient and/or caregivers are agreeable to this plan of care and follow-up instructions have been explained in detail. The patient and/or caregivers have received these instruction. The patient/and or caregivers are aware that any significant change in condition or worsening of symptoms should prompt an immediate return to this or the closest emergency department or call 911.
[2024-02-14 00:19] LABS: HCG URINE TEST NEGATIVE (NEGATIVE)
[2024-02-14 00:27] LABS: Appearance Clear (Clear); Bacteria None Seen /HPF (None Seen); Bilirubin Negative (Negative); Blood Negative (Negative); Epithelial Cells None Seen /HPF (None Seen); Glucose, Urine Negative (Negative); Hyaline Casts NONE SEEN /LPF (0-2); Ketones Negative (Negative); Leukocyte Esterase Negative (Negative); Nitrite Negative (Negative); Protein,Urine Dip Negative (Negative); Specific Gravity <=1.005 (1.005-1.030); Urobilinogen 0.2 mg/dL (0.2); WBC 0-2 /HPF (0-5)
[2024-02-14 00:29] LABS: ADD URINE CULTURE? NO (NO)
[2024-02-14 01:05] LABS: Candida Group NOT DETECTED (NEGATIVE); Candida glab/krus NOT DETECTED (NEGATIVE)
--- NOTE | 2024-02-14 01:07 | XRAY ---
CLINICAL HISTORY: vaginal pressure, foreign body? COMPARISON: No previous studies are available for comparison. TECHNIQUE: A CT scan of the female pelvis was performed without the administration of intravenous contrast. Contiguous axial images were obtained from the iliac crests to the pubic symphysis. Coronal and sagittal reformatted images were also reviewed. One of the following dose-reduction techniques was utilized for this exam. Automated exposure control, adjustment of the mA and/or kV according to patient size, and use of iterative reconstruction. FINDINGS: Uterus: The uterus is anteverted and normal in size and shape. No focal lesions or masses identified. Endometrial lining appears normal. Few air specks are identified within the vaginal cavity. It otherwise appears grossly unremarkable. No definite evidence of uterine prolapse or radiopaque foreign body on this examination. Adnexa: Both ovaries are visualized and appear normal in size and morphology. No adnexal masses or cysts identified. Pelvic Bones: The pelvic bones are intact without evidence of fracture or destructive lesions. Bladder: The urinary bladder is suboptimally distended however, appears normal. Rectum and Colon: Mild inferior bulge of the anorectal region is identified. Local examination is recommended to rule out features of rectal prolapse. The rectum and colon are otherwise, within normal limits without evidence of wall thickening. Cecum appears collapsed with submucosal fat. Pelvic Soft Tissues: The pelvic soft tissues are unremarkable without evidence of mass or abnormal fluid collection. Mild fat stranding is identified in the subcutaneous tissues of the right anterior pelvic wall which may be nonspecific or secondary to subcutaneous injection Additional Findings: No free fluid or lymphadenopathy was identified in the pelvis. Few phleboliths are identified within the pelvis. IMPRESSION: 1. Anteverted, normal-sized uterus. Air specks within the vaginal cavity which is usually a normal finding. No discrete radiopaque foreign body is identified within the vaginal cavity. 2. No evidence of uterine prolapse. If clinically indicated, an ultrasound pelvis is advised for further evaluation. 3. Mild inferior descent of the anorectal junction. Local examination is recommended to rule out features of rectal prolapse. 4. No other significant additional abnormality is identified. Electronically Signed by: Paulina Howard MD. (02/14/2024 01:04:34 EDT)
[2024-02-14 01:38] LABS: CHLAMYDIA DNA NOT DETECTED (NEGATIVE); GC DNA Probe NOT DETECTED (NEGATIVE)
[2024-02-14 01:42] VITALS: BP 116/82; PULSE 78; RESP 18
[2024-02-14 02:01] VITALS: O2SAT 94
== END 2024-02-14 02:15 | disposition home or self-care (01) ==
LOC: ED 21:53
DX: R10.2 Pelvic and perineal pain (principal); Z59.811 Housing instability, housed, with risk of homelessness
CPT/HCPCS: 72192; 81001; 81025; 87481; 87491; 87591; 87661; 87801; 99283

== ENCOUNTER 2024-04-29 06:30 | Day surgery (SDC) | payer OTHER ==
[2024-04-29 06:47] LABS: HCG URINE TEST NEGATIVE (NEGATIVE)
[2024-04-29 06:55] VITALS: RESP 16
[2024-04-29] MEDS ORDERED: TYLENOL EXTRA STRENGTH 500 MG ONE (07:05)
[2024-04-29] MEDS ORDERED: celeBREX 100 MG ONE (07:05)
[2024-04-29] MEDS ORDERED: NEURONTIN ONE (07:05)
[2024-04-29] MEDS ORDERED: Decadron 4 MG ONE (07:05)
[2024-04-29] MEDS: NEURONTIN PO ONE (07:06)
[2024-04-29] MEDS: Decadron 4 MG PO ONE (07:06)
[2024-04-29] MEDS: TYLENOL EXTRA STRENGTH 500 MG PO ONE (07:07)
[2024-04-29] MEDS: celeBREX 100 MG PO ONE (07:07)
[2024-04-29] MEDS ORDERED: Pepcid 20 MG VIAL IV ONE (07:10)
[2024-04-29] MEDS ORDERED: Transderm Scop 1.5MG Patch ONE (07:10)
[2024-04-29] MEDS ORDERED: Reglan 10 MG/2 ML ONE (07:10)
[2024-04-29] MEDS: Transderm Scop 1.5MG Patch TOP PRN (07:12)
[2024-04-29] MEDS: Lactated Ringers 1,000 ML IV SCH (07:12)
[2024-04-29] MEDS: Pepcid 20 MG VIAL IV ONE (07:13)
[2024-04-29] MEDS: Reglan 10 MG/2 ML IV ONE (07:13)
[2024-04-29] MEDS: CEFAZOLIN 2 GM/100 ML NaCl 2 GM/100 ML IVPB IV SCH (07:16)
[2024-04-29 07:36] LABS: Hematocrit 28.7 % (34.1-44.9); Hemoglobin 9.1 g/dL (11.2-15.7); Mean Cell Volume 90.8 fL (79.4-94.8); Mean Corpuscular Hemoglobin 28.8 pg (25.6-32.2); Mean Corpuscular Hgb Concent. 31.7 g/dL (32.2-35.5); Mean Platelet Volume 9.2 fL (9.4-12.3); Platelet Count 371 x10^3/uL (182-369); Red Blood Count 3.16 x10^6/uL (3.93-5.22); Red Cell Distribution Width 14.2 % (11.7-14.4); White Blood Count 6.4 x10^3/uL (3.98-10.04)
[2024-04-29 07:52] LABS: ALBUMIN 3.8 g/dL (3.5-5.0); ANION GAP 14.9 MEQ/L (5-15); BILIRUBIN,TOTAL 0.2 mg/dL (0.2-1.3); Calcium 8.9 mg/dL (8.4-10.2); Creatinine 1 0.71 mg/dL (0.52-1.04); EST GLOMERULAR FILTRATION RATE 113.6 ML/MIN; Potassium 3.7 mmol/L (3.5-5.1); Total Protein 6.6 g/dL (6.3-8.2)
[2024-04-29] MEDS ORDERED: SUBLIMAZE 100 MCG/2 ML ONE ×2 (08:00→09:31)
[2024-04-29] MEDS ORDERED: Versed 2 MG/2 ML Injection ONE (08:00)
[2024-04-29] MEDS ORDERED: BRIDION 200MG/2ML IV ONE (08:02)
[2024-04-29] MEDS ORDERED: ROCURONIUM BROMIDE IV ONE (08:02)
[2024-04-29] MEDS ORDERED: DEXMEDETOMIDINE 80 MCG/20ML-NS IV ONE (08:02)
[2024-04-29] MEDS ORDERED: TORAdol 30 mg Injection ONE (08:02)
[2024-04-29] MEDS ORDERED: DIPRIVAN 200 MG/20 ML IV ONE (08:02)
[2024-04-29] MEDS ORDERED: Zofran 4 MG/2 ML VIAL ONE (08:02)
[2024-04-29] MEDS ORDERED: PITRESSIN 20 UNITS ONE ×2 (08:28→08:29)
[2024-04-29] MEDS ORDERED: Xylocaine-Mpf 2% 5 Ml Vial ONE (08:30)
[2024-04-29] MEDS ORDERED: Ephedrine Sulfate 50 MG/ML ONE (08:40)
[2024-04-29] MEDS ORDERED: Lactated Ringers 1,000 ML IV ONE (08:43)
[2024-04-29] MEDS ORDERED: PHENYLEPHRINE HCL ONE (08:48)
[2024-04-29 11:01] VITALS: PULSE 86; TEMP 97.3
[2024-04-29 11:23] VITALS: BP 101/63; O2SAT 96
--- NOTE | 2024-05-02 10:12 | OP ---
SURGERY DATE/TIME: 04/29/2024 [id number] PREOPERATIVE DIAGNOSIS: Cystocele and rectocele. POSTOPERATIVE DIAGNOSIS: Cystocele and rectocele. PROCEDURE: Anterior colporrhaphy, posterior colporrhaphy. SURGEON: Brandon Hooper D.O. MARINE SURVEYOR: Elvi. ANESTHESIA: General. ESTIMATED BLOOD LOSS: Minimal. COMPLICATIONS: None. FINDINGS: The risks, benefits, indications, and alternatives of the procedure were reviewed with the patient prior to the procedure. Patient understood the risk of infection, bleeding, bowel injury, bladder injury, ureteral injury, pelvic infection, thromboembolic disorder associated with the surgery and desires to have the surgery as a possible means to alleviate her current medical condition. Patient also understood the risk of bowel injury with incontinence associated with the surgery as well, whether urinary incontinence or fecal incontinence. DESCRIPTION OF PROCEDURE AND FINDINGS: At this time, patient was taken to the operating room, given general sedation, placed in the dorsal lithotomy position, prepped and draped in the usual sterile fashion. A dilute 20 unit Pitressin was diluted with 100 mL of normal saline and approximately 20 mL was used to infiltrate under the anterior vaginal mucosa in the midline. A small incision was made in the vaginal mucosa at the vaginal vault just above the cervix and then Metzenbaum scissors were used to dissect the mucosa off of the cystocele and cut the vaginal mucosa in the midline. The cut edges were then held and splayed laterally with a series of Allis clamps. The bladder was then dissected away of along the lateral edges with a combination of sharp and blunt dissection, exposing the vesicovaginal space. A series of 2-0 Vicryl interrupted sutures were then placed sequentially along the lateral folds of the vesicovaginal space and brought together to tuck the bladder back while simultaneously bringing the lateral vaginal tissues together. The excess vaginal mucosa was then trimmed and the vagina was then closed with a running locked 2-0 Vicryl suture. At this point, again a dilute Pitressin to saline was then used, approximately 20 mL was used to infiltrate the posterior vaginal mucosa midline entering into the peritoneal body. An inverted triangle mukund of the skin was cut in the perineum. The posterior vaginal wall was opened vertically in midline up to the apex of the rectocele. The cut edges were held and splayed laterally with a series of Allis clamps. The opened vaginal mucosa was then dissected laterally with a combination of sharp and blunt dissection, exposing the perirectal fascia. The perirectal fascia was then reapproximated with interrupted 2-0 Vicryl sutures to draw the lateral folds together and tuck the rectocele back. Deep interrupted sutures of 0 Vicryl were used to reapproximate the fibers of the levator ani muscles. The excess vaginal mucosa was then trimmed. The posterior vaginal wall was closed with a running locked 2-0 Vicryl suture to the hymenal tags. The superficial perineal muscles were closed with a closed with a running locked 0 Vicryl and the premuscular closed with interrupted sutures, 2-0 chromic sutures were used. At this point, the completion of the procedure was made. The patient was then taken out of the dorsal lithotomy position, was taken out of anesthesia, was then taken to recovery room in stable condition. All instrument and laps were accounted for x2.
== END 2024-04-29 11:30 | disposition home or self-care (01) ==
LOC: SDC 06:30
PROVIDERS: ATTEND Obstetrics & Gynecology
DX: N81.10 Cystocele, unspecified (principal); N81.6 Rectocele
CPT/HCPCS: 36415; 57240; 57250; 80053; 81025; 85027; J0690; J1885; J2250; J2371; J2405; J2704; J3010; A9270-GY

== ENCOUNTER 2025-01-13 16:00 | Observation (INO) | payer OTHER ==
--- NOTE | 2025-01-13 18:06 | ERPHSYRPT ---
- History of Present Illness Source: patient Exam Limitations: no limitations Patient Subjective Stated Complaint: patient has been increasingly fatigued since sunday, patient stated she got her labs drawn today at the [facility] office and her hemoglobin was 5.8 Triage Nursing Assessment: patient came into ed with low hemoglobin, patient's skin pale,vitals WNL, patient alert and oriented x 4 Physician History: Patient has anemia. She has been having some rectal bleeding. She has a history of this. Her hemoglobin is down to 5.6. She has been feeling fatigued.It has been a constant slow bleed. She has not had anyAggressive rectal bleeding. She says it only bleeds whenever she is having a bowel movement. She noticed this and says she been getting fatigued. They did a outpatient blood draw on her noticed her hemoglobin was pretty low. It generally runs low but not this low. She has had problems like this in the past in the [facility] has repaired it.There is no other sources of bleeding. Allergies/Adverse Reactions: latex Allergy (Severe, Verified 01/13/25 16:27) Rash codeine Allergy (Verified 01/13/25 16:27) does not remember reaction Home Medications: Dulaglutide [Trulicity] 0.75 mg SQ WEEKLY 02/13/24 [History] Ferrous Sulfate 325 mg PO DAILY 04/02/24 [History] Vitamin E 1 tablet PO BID 04/29/24 [History] Hx Tetanus, Diphtheria Vaccination/Date Given: No Hx Influenza Vaccination/Date Given: No Hx Pneumococcal Vaccination/Date Given: No Travel Risk - International Travel Have you traveled outside of the country in past 3 weeks: No - Emerging Infectious Disease Are you exhibiting symptoms associated with any current EIDs: No - Review of Systems Constitutional: Fatigue Respiratory: No Symptoms Cardiac: No Symptoms Abdominal/Gastrointestinal: Hematochezia Genitourinary Symptoms: No Symptoms Musculoskeletal: No Symptoms - Past Medical History Pertinent Past Medical History: Yes Other Medical History: pre diabetic - Past Surgical History Past Surgical History: Yes Other Surgical History: colonoscopy x 2. tonsillectomy - Female History Hx Last Menstrual Period: currently on period Hx Now: No - Social History Smoking Status: Never smoker Exposure to second hand smoke: No Drug Use: none - Social Determinants of Health Will the patient participate in the screening: Unable to obtain - Nursing Vital Signs Nursing Vital Signs: Initial Vital Signs Temperature 98 F 01/13/25 16:01 Pulse Rate 117 H 01/13/25 16:01 Respiratory Rate 16 01/13/25 16:01 Blood Pressure 123/80 01/13/25 16:01 O2 Sat by Pulse Oximetry 98 01/13/25 16:01 Pain Scale Pain Intensity 0 - Physical Exam General Appearance: no apparent distress Eye Exam: PERRL/EOMI Respiratory Exam: normal breath sounds Cardiovascular Exam: regular rate/rhythm Gastrointestinal/Abdomen Exam: soft, normal bowel sounds, tenderness Neurologic Exam: alert, oriented x 3, cooperative Skin Exam: normal color, warm, dry SpO2: 100 - Course Nursing assessment & vital signs reviewed: Yes Ordered Tests: Active Orders 24 hr Category Date Time Status Bedrest TOLERATED Activity 01/13/25 19:02 Ordered Consent,Obtain ROUTINE Care 01/13/25 19:01 Ordered Consent,Obtain ROUTINE Care 01/13/25 19:01 Ordered H&H 1 Hr Post Transfusion 1 HR POST TRANSFUS Care 01/13/25 19:01 Ordered Intake and Output q4h Care 01/13/25 19:[address] in Observation ROUTINE Care 01/13/25 19:01 Ordered - Progress Progress: unchanged Progress Note: I spoke with Dr. Dave. He said that he would be happy to see the patient tomorrow. I am going to talk to the hospitalist and see if we can get her admitted. 01/13/25 18:06 - Departure Departure Disposition: Observation Clinical Impression: Anemia, GI bleed Condition: Stable Critical Care Time: No Referrals: LG MCNAMARA MD [Primary Care Provider, [facility]] - Follow up/PCP as directed
[2025-01-13 20:15] LABS: ABO TYPING O; RH TYPING NEGATIVE
[2025-01-13 20:18] LABS: CROSS MATCH (PRBC) COMPATIBLE (COMPATIBLE)
[2025-01-13 20:19] LABS: CROSS MATCH (PRBC) COMPATIBLE (COMPATIBLE)
[2025-01-13 20:20] LABS: CROSS MATCH (PRBC) COMPATIBLE (COMPATIBLE)
[2025-01-13] MEDS: BENADRYL 25 MG CAPSULE PO ONE (21:41)
[2025-01-13] MEDS: TYLENOL 325 MG PO PRN (21:41)
[2025-01-13] MEDS: TYLENOL 325 MG PO ONE (21:42)
[2025-01-13] MEDS: LASIX 20 MG PO ONE (21:43)
[2025-01-13] MEDS ORDERED: BENADRYL 25 MG CAPSULE ONE (21:48)
--- NOTE | 2025-01-13 22:20 | PCM.HP ---
History of Present Illness - Chief Complaint Chief Complaint: low energy, hemorrhoid bleed Date: 01/13/25 History of Present Illness: 34-year-old woman with history of internal hemorrhoids who presents with low energy. Patient notes that for the past few days, she has had severely low energy at work, not able to sit up as much, with some occasional lightheadedness, progressively worsening since Sunday. Particularly noticeable when she is bending for a long time, relieved by rest. She has no symptoms at rest. Denies any chest pain, dyspnea, nausea, or abdominal pain. She has a known history of internal hemorrhoids, requiring banding twice previously by Dr. Martinez, last done 2 years ago. She notes that she has had months of intermittent painless bleeding with defecation, usually lasting about a week, and self resolving. She has not had any symptoms with this, but has not had her hemoglobin checked in well over a year. She notes chronic constipation. For the last week, she has had another episode of bleeding with stooling, really only noticeable when she is having to strain hard. Denies any history of melena. She has never previously had any symptomatic anemia, as she does been treated before she has developed a hemoglobin this low. Her last prior low was 9.1. Her last period was from December 31 to January 05, only heavy for the first 2 days. Denies any irregular menses or particularly heavy menses. Denies any use of [id number] NSAIDs. - Review of Systems All Other Systems: Reviewed and Negative Medications & Allergies Home Medications: Home Medication List Dulaglutide [Trulicity] 0.75 mg SQ WEEKLY 02/13/24 [History Confirmed 01/13/25] Ferrous Sulfate 325 mg PO DAILY 04/02/24 [History Confirmed 01/13/25] Vitamin E 1 tablet PO HS 04/29/24 [History Confirmed 01/13/25] Phentermine HCl 37.5 mg PO QAM 01/13/25 [History Confirmed 01/13/25] Topiramate 25 mg PO QAM 01/13/25 [History Confirmed 01/13/25] Allergies/Adverse Reactions: Allergies Allergy/AdvReac Type Severity Reaction Status Date / Time latex Allergy Severe Rash Verified 01/13/25 16:27 codeine Allergy Verified 01/13/25 16:27 - Past Medical History Past Medical History: Yes Neurological History: No Pertinent History ENT History: No Pertinent History Cardiac History: No Pertinent History Respiratory History: No Pertinent History Endocrine Medical History: No Pertinent History Musculoskelatal History: No Pertinent History GI Medical History: Hemorrhoids History: No Pertinent History Pyscho-Social History: Anxiety, Depression Reproductive Disorders: No Pertinent History Comment: pre diabetic, iron deficiency anemia - Female History Are you now?: No - Past Surgical History Past Surgical History: Yes Neuro Surgical History: No Pertinent History Cardiac History: No Pertinent History Respiratory Surgery: No Pertinent History GI Surgical History: No Pertinent History Genitourinary Surgical Hx: No Pertinent History Musculskeletal Surgical Hx: No Pertinent History Female Surgical History: No Pertinent History, Dilation & Curettage Other Surgical History: colonoscopy x 2. tonsillectomy Family History: No history of bleeding diatheses. - Social History Smoking Status: Never smoker How long have you smoked: 13 years Exposure to second hand smoke: No Alcohol: None Drug Use: none - Social Determinants of Health Will the patient participate in the screening: Yes Do you worry about a steady place to live?: No Do you have any problems with any of the following?: No known problems In the past 12 months,have you had to go without utilities?: No Have you or anyone in your house had to go without enough: No Transportation Issues: No Has anyone in your support network made you feel unsafe?: No Does the patient want assistance with any of the above?: No - Physical Exam Vital Signs: Vital Signs - 24 hr Temp Pulse Resp BP BP Pulse Ox 01/13/25 20:28 98.8 F 104 H 16 114/66 99 01/13/25 19:04 100 01/13/25 19:00 95 H 18 108/68 97 01/13/25 18:30 122/73 100 01/13/25 18:00 117/70 100 01/13/25 17:30 116/70 100 01/13/25 17:00 99 H 18 107/74 100 01/13/25 16:30 112/77 100 01/13/25 16:06 106 H 18 123/80 100 01/13/25 16:01 98 F 117 H 16 123/80 98 Physical Exam GEN: Sitting up in bed in no acute distress. HENT: Normocephalic, atraumatic. Moist mucous membranes. EYES: Normal inspection, anicteric sclera, extraocular movements intact. NECK: Supple, full range of motion CV: Regular rate and rhythm, no murmurs, no gallops. No JVD or edema. PULM: Clear to auscultation bilaterally, no work of breathing. On room air. ABD: Nondistended, nontender. MSK: No joint effusions, full range of motion SKIN: No rashes, normal color. NEURO: Face symmetric, no focal motor or sensory deficits. PSYCH: Alert, oriented x 3 Results - Labs Lab/Micro Results: Lab Results-Last 24 Hours 01/13/25 01/13/25 01/13/25 Range/Units 19:14 20:16 20:16 ABO Group O Rh Factor NEGATIVE Antibody Screen NEGATIVE (NEGATIVE) Crossmatch COMPATIBLE COMPATIBLE (COMPATIBLE) 01/13/25 Range/Units 20:16 ABO Group Rh Factor Antibody Screen (NEGATIVE) Crossmatch COMPATIBLE (COMPATIBLE) Assessment/Plan (1) Anemia Current Visit: Yes Status: Acute Assessment & Plan: 34-year-old woman with history of internal hemorrhoids, here with symptomatic anemia. ## Symptomatic anemia, internal hemorrhoids reviewed labs from clinic earlier today, the patient has a normocytic anemia with hypochromia and anisocytosis. Hemoglobin is down to 5.8, showing profound anemia. Given patient's active ongoing painless hematochezia with defecation, constipation, and history of prior internal hemorrhoids, this is almost certainly due to to her internal hemorrhoids. Dr. Dave has already seen the patient, I did not see any active bleeding on exam. Recommended outpatient follow-up for hemorrhoidectomy. Transfuse 2 units PRBCs Check posttransfusion H&H, and transfuse further to obtain hemoglobin greater than 7 Will not send any further anemia labs as patient is already getting her first unit of blood, and the etiology appears to be very overt Once hemoglobin levels have improved, if symptoms have resolved, expected discharge to follow-up with Dr. Dave for hemorrhoidectomy Educated patient on increasing fluid intake and adding fiber in diet, either through dietary intake or through supplements Continue ferrous sulfate supplementation ## Prediabetes patient denies any history of actual diabetes, but she has been on Trulicity since she was diagnosed years ago. No need for glucose checks or monitoring while inpatient, expect patient to have a short stay. CODE STATUS: Full code Prophylaxis: Low risk, encourage ambulation Diet: Regular Dispo: Place in observation, expect discharge to home after transfusion completed if hemoglobin levels respond appropriately Entirety of encounter took place via live audio/video telemedicine device, with remote physician and patient in hospital, with the assistance of bedside nurse. Hakeem Taylor MD Telemedicine Hospitalist Access TeleCare Code(s): D64.9 - ANEMIA, UNSPECIFIED Telemedicine Encounter - Telemedicine Encounter Telemedicine Encounter: "The entirety of this encounter was performed via Telemedicine" This visit was performed using real-time audio and video connection between my location and thepatients locationwith the assistance of a surrogateat the patients location. Written or verbal consent was obtained from the patient/guardian to perform this visit using[facility] technology. Any patient questions regarding the telemedicine interaction were answered.
[2025-01-14 04:57] LABS: Calcium 8.5 mg/dL (8.4-10.2); Carbon Dioxide 24.0 mmol/L (22-30); Creatinine 1 0.54 mg/dL (0.52-1.04); EST GLOMERULAR FILTRATION RATE 122.3 ML/MIN; Glucose 91.0 mg/dL (74-106); Potassium 3.5 mmol/L (3.5-5.1)
[2025-01-14 05:05] LABS: Hematocrit 25.0 % (34.1-44.9); Mean Corpuscular Hemoglobin 26.7 pg (25.6-32.2); Mean Corpuscular Hgb Concent. 30.4 g/dL (32.2-35.5); Platelet Count 345 x10^3/uL (182-369); Red Blood Count 2.85 x10^6/uL (3.93-5.22); White Blood Count 4.5 x10^3/uL (3.98-10.04)
[2025-01-14 05:09] LABS: Hemoglobin 7.6 g/dL (11.2-15.7)
[2025-01-14] MEDS: TOPIRAMATE PO SCH (08:52)
[2025-01-14] MEDS: FEOSOL 325 MG PO SCH (08:52)
[2025-01-14] MEDS: Docusate Sodium 100 MG PO ONE (09:38)
[2025-01-14] MEDS ORDERED: NON-FORMULARY ITEM (Topiramate [Topiramate] 25 MG Tablet) PO SCH (10:00)
--- NOTE | 2025-01-14 10:23 | PCM.DS ---
Discharge Summary Date of Admission: 01/13/25 19:51 Date of Discharge: 01/14/25 Admitting Physician: ALVINO COMBS MD Primary Care Provider: LG MCNAMARA YONAS Allergies Allergies latex Allergy (Severe, Verified 01/13/25 16:27) Rash codeine Allergy (Verified 01/13/25 16:27) does not remember reaction Hospital Summary - Hospital Course Hospital Course: Ms. Maldonado is a 34-year-old female with a history of internal hemorrhoids and prediabetes who was admitted 01/13/25 for symptomatic anemia. The patient presented with several days of progressively worsening fatigue and episodes of lightheadedness, particularly when bending or upright for extended periods. She denied any associated chest pain, shortness of breath, nausea, melena, or abdominal discomfort. Of note, she has a known history of internal hemorrhoids which have previously required banding, most recently two years ago by Dr. Martinez. She reports intermittent painless rectal bleeding associated with straining during bowel movements over the past several months, with the most recent episode occurring this morning. She also endorses chronic constipation. Her last menstrual period was from December and was unremarkable, with only two heavy days; she denies abnormal menstrual bleeding or NSAID use. Initial laboratory evaluation revealed a hemoglobin of 5.8 , representing profound anemia. Peripheral smear was consistent with normocytic anemia with hypochromia and anisocytosis. Given her history and clinical presentation, her anemia is attributed to chronic, intermittent blood loss secondary to internal hemorrhoids. She received a total of 3 units of packed red blood cells during her hospital stay, with improvement in symptoms. Post-transfusion labs showed stable hemoglobin, and she remained hemodynamically stable and asymptomatic at rest. She was evaluated in the emergency department by Dr. Doe Dave, who plans for outpatient surgical hemorrhoidectomy. - Vitals & Intake/Output Vital Signs: Vital Signs Temperature 97.8 F 01/14/25 07:00 Pulse Rate 90 01/14/25 07:00 Respiratory Rate 16 01/14/25 07:00 Blood Pressure 98/66 01/14/25 07:00 O2 Sat by Pulse Oximetry 99 01/14/25 07:00 Intake & Output: Intake & Output 01/11/25 01/12/25 01/13/25 01/14/25 11:59 11:59 11:59 11:59 Intake Total 1458 Balance 1458 Weight 68.4 kg - Lab Result Diagrams: 01/14/25 04:16 01/14/25 04:16 Lab Results-Last 24 Hrs: Lab Results-Last 24 Hours 01/13/25 01/13/25 01/13/25 Range/Units 19:14 20:16 20:16 WBC (3.98-10.04) x10^3/uL RBC (3.93-5.22) x10^6/uL Hgb (11.2-15.7) g/dL Hct (34.1-44.9) % MCV (79.4-94.8) fL MCH (25.6-32.2) pg MCHC (32.2-35.5) g/dL RDW (11.7-14.4) % Plt Count (182-369) x10^3/uL MPV (9.4-12.3) fL Sodium (135-145) mmol/L Potassium (3.5-5.1) mmol/L Chloride (98-107) mmol/L Carbon Dioxide (22-30) mmol/L Anion Gap (5-15) MEQ/L BUN (7-17) mg/dL Creatinine (0.52-1.04) mg/dL Estimated GFR ML/MIN Glucose (74-106) mg/dL Calcium (8.4-10.2) mg/dL ABO Group O Rh Factor NEGATIVE Antibody Screen NEGATIVE (NEGATIVE) Crossmatch COMPATIBLE COMPATIBLE (COMPATIBLE) 01/13/25 01/14/25 01/14/25 Range/Units 20:16 04:16 04:16 WBC 4.5 (3.98-10.04) x10^3/uL RBC 2.85 L (3.93-5.22) x10^6/uL Hgb 7.6 L D (11.2-15.7) g/dL Hct 25.0 L (34.1-44.9) % MCV 87.7 (79.4-94.8) fL MCH 26.7 (25.6-32.2) pg MCHC 30.4 L (32.2-35.5) g/dL RDW 15.3 H (11.7-14.4) % Plt Count 345 (182-369) x10^3/uL MPV 10.5 (9.4-12.3) fL Sodium 137 (135-145) mmol/L Potassium 3.5 (3.5-5.1) mmol/L Chloride 107 (98-107) mmol/L Carbon Dioxide 24 (22-30) mmol/L Anion Gap 9.5 (5-15) MEQ/L BUN 8 (7-17) mg/dL Creatinine 0.54 (0.52-1.04) mg/dL Estimated GFR 122.3 ML/MIN Glucose 91 (74-106) mg/dL Calcium 8.5 (8.4-10.2) mg/dL ABO Group Rh Factor Antibody Screen (NEGATIVE) Crossmatch COMPATIBLE (COMPATIBLE) - Discharge Disposition: Home, Self-Care Condition: Stable Prescriptions: No Action Dulaglutide [Trulicity] 0.75 mg SQ WEEKLY Ferrous Sulfate 325 mg PO DAILY Vitamin E 1 tablet PO HS Phentermine HCl 37.5 mg PO QAM Topiramate 25 mg PO QAM Follow up with: LG MCNAMARA MD [Primary Care Provider, [facility]ILY [facility]ACTICE] - 01/21/25 10:15 am SERGEY SALCEDO NP [[employer] PROFESSION STAFF, GENERAL SURGERY] - 01/29/25 10:45 am Referral Note: [facility] WITH POLINA RINCON FOR
[2025-01-14 11:04] LABS: IFOB TEST RESULTS POSITIVE (NEGATIVE)
--- NOTE | 2025-01-14 13:49 | PCM.NOTE ---
Date and Time: 01/14/25 9598 Subjective Assessment: Ms. Maldonado is a 34-year-old female with a history of internal hemorrhoids and prediabetes, admitted for symptomatic anemia secondary to chronic rectal blood loss. The patient has reported intermittent painless hematochezia associated with straining during bowel movements, with a known history of internal hemorrhoids previously treated with banding. She initially presented with profound fatigue and lightheadedness, with a hemoglobin on admission of 5.8. She has received a total of 3 units of packed red blood cells with improvement in symptoms. Previously, surgical evaluation by Dr. Doe Dave recommended outpatient hemorrhoidectomy once stable. Today, the patient reports continued intermittent rectal bleeding, and nursing documented a large amount of visible blood in the commode during bowel movement. Though the bleeding remains hemodynamically well-tolerated, the persistence and moderate volume raised concern. Given these findings, the surgery team was re-consulted today for reassessment and consideration of earlier intervention. The patient remains stable, without ongoing symptomatic anemia, and is tolerating oral intake. - Review of Systems Constitutional: Fatigue, Weakness Eyes: No Symptoms Ears, Nose, & Throat: No Symptoms Respiratory: No Symptoms Cardiac: No Symptoms Abdominal/Gastrointestinal: No Symptoms Genitourinary Symptoms: No Symptoms Musculoskeletal: No Symptoms Skin: No Symptoms Neurological: No Symptoms Psychological: No Symptoms Endocrine: No Symptoms Hematologic/Lymphatic: Anemia Immunological/Allergic: No Symptoms Objective Exam General Appearance: no apparent distress Neurologic Exam: alert, oriented x 3, cooperative Skin Exam: pale Eye Exam: PERRL Ears, Nose, Throat Exam: normal ENT inspection Neck Exam: normal inspection Respiratory Exam: normal breath sounds, lungs clear Cardiovascular Exam: regular rate/rhythm, normal heart sounds Gastrointestinal/Abdomen Exam: soft, normal bowel sounds Extremity Exam: normal inspection Back Exam: normal inspection Pelvic Exam: deferred Objective Data Vital Signs: Vital Signs - 24 hr Temp Pulse Resp BP BP Pulse Ox 01/14/25 11:20 98.3 F 81 16 108/71 01/14/25 07:00 97.8 F 90 16 98/66 99 01/14/25 04:00 98.0 F 80 16 109/69 98 01/14/25 00:00 99.3 F 96 H 16 113/63 98 01/13/25 20:28 98.8 F 104 H 16 114/66 99 01/13/25 19:04 100 01/13/25 19:00 95 H 18 108/68 97 01/13/25 18:30 122/73 100 01/13/25 18:00 117/70 100 01/13/25 17:30 116/70 100 01/13/25 17:00 99 H 18 107/74 100 01/13/25 16:30 112/77 100 01/13/25 16:06 106 H 18 123/80 100 01/13/25 16:01 98 F 117 H 16 123/80 98 Pain Assessment - Last Documented Pain Intensity 0 Intake and Output: Intake & Output 01/12/25 01/13/25 01/14/25 01/15/25 11:59 11:59 11:59 11:59 Intake Total 1458 613 Balance 1458 613 Weight 68.4 kg Lab Results: Lab Results-Last 24 Hours 01/13/25 01/13/25 01/13/25 Range/Units 19:14 20:16 20:16 WBC (3.98-10.04) x10^3/uL RBC (3.93-5.22) x10^6/uL Hgb (11.2-15.7) g/dL Hct (34.1-44.9) % MCV (79.4-94.8) fL MCH (25.6-32.2) pg MCHC (32.2-35.5) g/dL RDW (11.7-14.4) % Plt Count (182-369) x10^3/uL MPV (9.4-12.3) fL Sodium (135-145) mmol/L Potassium (3.5-5.1) mmol/L Chloride (98-107) mmol/L Carbon Dioxide (22-30) mmol/L Anion Gap (5-15) MEQ/L BUN (7-17) mg/dL Creatinine (0.52-1.04) mg/dL Estimated GFR ML/MIN Glucose (74-106) mg/dL Calcium (8.4-10.2) mg/dL Stl Occult Blood (IFOB) (NEGATIVE) ABO Group O Rh Factor NEGATIVE Antibody Screen NEGATIVE (NEGATIVE) Crossmatch COMPATIBLE COMPATIBLE (COMPATIBLE) 01/13/25 01/14/25 01/14/25 Range/Units 20:16 04:16 04:16 WBC 4.5 (3.98-10.04) x10^3/uL RBC 2.85 L (3.93-5.22) x10^6/uL Hgb 7.6 L D (11.2-15.7) g/dL Hct 25.0 L (34.1-44.9) % MCV 87.7 (79.4-94.8) fL MCH 26.7 (25.6-32.2) pg MCHC 30.4 L (32.2-35.5) g/dL RDW 15.3 H (11.7-14.4) % Plt Count 345 (182-369) x10^3/uL MPV 10.5 (9.4-12.3) fL Sodium 137 (135-145) mmol/L Potassium 3.5 (3.5-5.1) mmol/L Chloride 107 (98-107) mmol/L Carbon Dioxide 24 (22-30) mmol/L Anion Gap 9.5 (5-15) MEQ/L BUN 8 (7-17) mg/dL Creatinine 0.54 (0.52-1.04) mg/dL Estimated GFR 122.3 ML/MIN Glucose 91 (74-106) mg/dL Calcium 8.5 (8.4-10.2) mg/dL Stl Occult Blood (IFOB) (NEGATIVE) ABO Group Rh Factor Antibody Screen (NEGATIVE) Crossmatch COMPATIBLE (COMPATIBLE) 01/14/25 Range/Units 09:56 WBC (3.98-10.04) x10^3/uL RBC (3.93-5.22) x10^6/uL Hgb (11.2-15.7) g/dL Hct (34.1-44.9) % MCV (79.4-94.8) fL MCH (25.6-32.2) pg MCHC (32.2-35.5) g/dL RDW (11.7-14.4) % Plt Count (182-369) x10^3/uL MPV (9.4-12.3) fL Sodium (135-145) mmol/L Potassium (3.5-5.1) mmol/L Chloride (98-107) mmol/L Carbon Dioxide (22-30) mmol/L Anion Gap (5-15) MEQ/L BUN (7-17) mg/dL Creatinine (0.52-1.04) mg/dL Estimated GFR ML/MIN Glucose (74-106) mg/dL Calcium (8.4-10.2) mg/dL Stl Occult Blood (IFOB) POSITIVE A (NEGATIVE) ABO Group Rh Factor Antibody Screen (NEGATIVE) Crossmatch (COMPATIBLE) Medications: Medications Generic Name Dose Route Start Last Admin Trade Name Viry PRN Reason Stop Dose Admin Acetaminophen 650 mg 01/13/25 20:04 01/13/25 21:41 Acetaminophen 325 Mg Tablet PO 02/12/25 20:03 650 mg Q6H PRN PRN Administration PAIN AND/OR FEVER Ferrous Sulfate 325 mg 01/14/25 10:00 01/14/25 08:52 Ferrous Sulfate 325 Mg Tablet PO 02/13/25 09:59 325 mg DAILY KADEEM Administration Sodium Chloride 500 mls @ 50 mls/hr 01/14/25 08:30 01/14/25 08:54 Sodium Chloride 0.9% 500 Ml IV 01/14/25 14:29 50 mls/hr .Q10H KADEEM Administration Topiramate 25 mg 01/14/25 10:00 01/14/25 08:52 Topiramate 50 Mg Tablet PO 02/13/25 09:59 25 mg QAM KADEEM Administration Discontinued Medications Generic Name Dose Route Start Last Admin Trade Name Viry PRN Reason Stop Dose Admin Acetaminophen 650 mg 01/13/25 19:01 01/13/25 21:42 Acetaminophen 325 Mg Tablet PO 01/13/25 19:02 Not Given PRIOR TO BLOOD ONE Diphenhydramine HCl 25 mg 01/13/25 19:01 01/13/25 21:41 Diphenhydramine Hcl 25 Mg Capsule PO 01/13/25 19:02 25 mg PRIOR TO BLOOD ONE Administration Diphenhydramine HCl Confirm 01/13/25 21:48 Diphenhydramine Hcl 25 Mg Capsule Administered 01/13/25 21:49 Dose 25 mg .ROUTE .STK-MED ONE Docusate Sodium 100 mg 01/14/25 09:27 01/14/25 09:38 Docusate Sodium 100 Mg Capsule PO 01/14/25 09:28 100 mg ONCE ONE Administration Furosemide 20 mg 01/13/25 19:01 01/13/25 21:43 Furosemide 20 Mg Tablet PO 01/13/25 19:02 Not Given BETWEEN UNITS ONE Sodium Chloride Confirm 01/13/25 21:16 Sodium Chloride 0.9% 500 Ml Administered 01/13/25 21:17 Dose 500 mls @ ud IV .STK-MED ONE Sodium Chloride Confirm 01/13/25 23:54 Sodium Chloride 0.9% 500 Ml Administered 01/13/25 23:55 Dose 500 mls @ ud IV .STK-MED ONE Multi-Disciplinary Progress Notes: Multi-Disciplinary Progress Notes 01/14/25 10:13 Case Management Note by Gretchen Kaye S/W PATIENT AND SHE CONTINUES TO DENY ADDITIONAL NEEDS OR RESOURCES AT [place]. STATES SHE HAS SAFE HOME TO RETURN TO AND PLANS TO RETURN HOME WITH HER SPOUSE AND CHILDREN. Initialized on 01/14/25 10:13 - END OF NOTE Assessment/Plan (1) Symptomatic anemia Current Visit: Yes Status: Acute Assessment & Plan: -Secondary to most likely internal hemorrhoids- see plan below Transfused 3 units PRBCs during hospitalization -Hgb 5.8 on admission 7.6 after transfusion with 2 units PRBCs- 3 units total ordered- 3rd unit currently transfusing -trend CBC -Pt noted with active rectal bleeding (large amount) per nursing today Monitor post-transfusion hemoglobin and clinical status Continue oral ferrous sulfate supplementation Code(s): D64.9 - ANEMIA, UNSPECIFIED (2) Rectal bleeding Current Visit: Yes Status: Acute Assessment & Plan: Re-consulted surgery today for reassessment due to continued bleeding Monitor for hemodynamic changes or recurrent symptomatic anemia Ensure soft stool consistency to minimize straining and trauma Code(s): K62.5 - HEMORRHAGE OF ANUS AND RECTUM (3) Internal hemorrhoid Current Visit: Yes Status: Acute Assessment & Plan: Previously evaluated by Dr. Doe Dave; outpatient hemorrhoidectomy planned - Patient continues with active rectal bleeding- large amount noted by nursing- surgery reconsulted- pending recommendations for intervention -HGB 5.8 on admission - 7.6 after transfusion LPRBC 2 units - (3 units ordered)- currently receiving 3rd unit Continue conservative management: stool softeners, high-fiber diet, adequate hydration Await further surgical input regarding timing of intervention Code(s): K64.8 - OTHER HEMORRHOIDS (4) Prediabetes Current Visit: Yes Status: Acute Assessment & Plan: Continue outpatient Trulicity regimen No glucose monitoring needed during admission due to stable glycemic status Reinforce diet and lifestyle modification; follow-up with PCP or endocrinology as outpatient Code(s): R73.03 - PREDIABETES (5) Chronic constipation Current Visit: Yes Status: Acute Assessment & Plan: Increase dietary fiber and oral hydration Consider daily stool softeners or fiber supplements as needed Avoid straining during defecation Code(s): K59.09 - OTHER CONSTIPATION
[2025-01-14 13:57] LABS: Hematocrit 30.2 % (34.1-44.9); Hemoglobin 9.4 g/dL (11.2-15.7)
--- NOTE | 2025-01-14 14:36 | PCM.NOTE ---
Date and Time: 01/14/25 1434 Objective Data Vital Signs: Vital Signs - 24 hr Temp Pulse Resp BP BP Pulse Ox 01/14/25 11:20 98.3 F 81 16 108/71 01/14/25 07:00 97.8 F 90 16 98/66 99 01/14/25 04:00 98.0 F 80 16 109/69 98 01/14/25 00:00 99.3 F 96 H 16 113/63 98 01/13/25 20:28 98.8 F 104 H 16 114/66 99 01/13/25 19:04 100 01/13/25 19:00 95 H 18 108/68 97 01/13/25 18:30 122/73 100 01/13/25 18:00 117/70 100 01/13/25 17:30 116/70 100 01/13/25 17:00 99 H 18 107/74 100 01/13/25 16:30 112/77 100 01/13/25 16:06 106 H 18 123/80 100 01/13/25 16:01 98 F 117 H 16 123/80 98 Pain Assessment - Last Documented Pain Intensity 0 Intake and Output: Intake & Output 01/12/25 01/13/25 01/14/25 01/15/25 11:59 11:59 11:59 11:59 Intake Total 1458 613 Balance 1458 613 Weight 68.4 kg Lab Results: Lab Results-Last 24 Hours 01/13/25 01/13/25 01/13/25 Range/Units 19:14 20:16 20:16 WBC (3.98-10.04) x10^3/uL RBC (3.93-5.22) x10^6/uL Hgb (11.2-15.7) g/dL Hct (34.1-44.9) % MCV (79.4-94.8) fL MCH (25.6-32.2) pg MCHC (32.2-35.5) g/dL RDW (11.7-14.4) % Plt Count (182-369) x10^3/uL MPV (9.4-12.3) fL Sodium (135-145) mmol/L Potassium (3.5-5.1) mmol/L Chloride (98-107) mmol/L Carbon Dioxide (22-30) mmol/L Anion Gap (5-15) MEQ/L BUN (7-17) mg/dL Creatinine (0.52-1.04) mg/dL Estimated GFR ML/MIN Glucose (74-106) mg/dL Calcium (8.4-10.2) mg/dL Stl Occult Blood (IFOB) (NEGATIVE) ABO Group O Rh Factor NEGATIVE Antibody Screen NEGATIVE (NEGATIVE) Crossmatch COMPATIBLE COMPATIBLE (COMPATIBLE) 01/13/25 01/14/25 01/14/25 Range/Units 20:16 04:16 04:16 WBC 4.5 (3.98-10.04) x10^3/uL RBC 2.85 L (3.93-5.22) x10^6/uL Hgb 7.6 L D (11.2-15.7) g/dL Hct 25.0 L (34.1-44.9) % MCV 87.7 (79.4-94.8) fL MCH 26.7 (25.6-32.2) pg MCHC 30.4 L (32.2-35.5) g/dL RDW 15.3 H (11.7-14.4) % Plt Count 345 (182-369) x10^3/uL MPV 10.5 (9.4-12.3) fL Sodium 137 (135-145) mmol/L Potassium 3.5 (3.5-5.1) mmol/L Chloride 107 (98-107) mmol/L Carbon Dioxide 24 (22-30) mmol/L Anion Gap 9.5 (5-15) MEQ/L BUN 8 (7-17) mg/dL Creatinine 0.54 (0.52-1.04) mg/dL Estimated GFR 122.3 ML/MIN Glucose 91 (74-106) mg/dL Calcium 8.5 (8.4-10.2) mg/dL Stl Occult Blood (IFOB) (NEGATIVE) ABO Group Rh Factor Antibody Screen (NEGATIVE) Crossmatch COMPATIBLE (COMPATIBLE) 01/14/25 01/14/25 Range/Units 09:56 13:50 WBC (3.98-10.04) x10^3/uL RBC (3.93-5.22) x10^6/uL Hgb 9.4 L D (11.2-15.7) g/dL Hct 30.2 L (34.1-44.9) % MCV (79.4-94.8) fL MCH (25.6-32.2) pg MCHC (32.2-35.5) g/dL RDW (11.7-14.4) % Plt Count (182-369) x10^3/uL MPV (9.4-12.3) fL Sodium (135-145) mmol/L Potassium (3.5-5.1) mmol/L Chloride (98-107) mmol/L Carbon Dioxide (22-30) mmol/L Anion Gap (5-15) MEQ/L BUN (7-17) mg/dL Creatinine (0.52-1.04) mg/dL Estimated GFR ML/MIN Glucose (74-106) mg/dL Calcium (8.4-10.2) mg/dL Stl Occult Blood (IFOB) POSITIVE A (NEGATIVE) ABO Group Rh Factor Antibody Screen (NEGATIVE) Crossmatch (COMPATIBLE) Medications: Medications Generic Name Dose Route Start Last Admin Trade Name Frebenny PRN Reason Stop Dose Admin Acetaminophen 650 mg 01/13/25 20:04 01/13/25 21:41 Acetaminophen 325 Mg Tablet PO 02/12/25 20:03 650 mg Q6H PRN PRN Administration PAIN AND/OR FEVER Docusate Sodium 100 mg 01/14/25 22:00 Docusate Sodium 100 Mg Capsule PO 02/13/25 21:59 BID KADEEM Ferrous Sulfate 325 mg 01/14/25 10:00 01/14/25 08:52 Ferrous Sulfate 325 Mg Tablet PO 02/13/25 09:59 325 mg DAILY KADEEM Administration Polyethylene Glycol 17 gm 01/14/25 14:00 Polyethylene Glycol 3350 17 Gm Packet PO 02/13/25 13:59 DAILY KADEEM Topiramate 25 mg 01/14/25 10:00 01/14/25 08:52 Topiramate 50 Mg Tablet PO 02/13/25 09:59 25 mg QAM KADEEM Administration Discontinued Medications Generic Name Dose Route Start Last Admin Trade Name Freq PRN Reason Stop Dose Admin Acetaminophen 650 mg 01/13/25 19:01 01/13/25 21:42 Acetaminophen 325 Mg Tablet PO 01/13/25 19:02 Not Given PRIOR TO BLOOD ONE Diphenhydramine HCl 25 mg 01/13/25 19:01 01/13/25 21:41 Diphenhydramine Hcl 25 Mg Capsule PO 01/13/25 19:02 25 mg PRIOR TO BLOOD ONE Administration Diphenhydramine HCl Confirm 01/13/25 21:48 Diphenhydramine Hcl 25 Mg Capsule Administered 01/13/25 21:49 Dose 25 mg .ROUTE .STK-MED ONE Docusate Sodium 100 mg 01/14/25 09:27 01/14/25 09:38 Docusate Sodium 100 Mg Capsule PO 01/14/25 09:28 100 mg ONCE ONE Administration Furosemide 20 mg 01/13/25 19:01 01/13/25 21:43 Furosemide 20 Mg Tablet PO 01/13/25 19:02 Not Given BETWEEN UNITS ONE Sodium Chloride Confirm 01/13/25 21:16 Sodium Chloride 0.9% 500 Ml Administered 01/13/25 21:17 Dose 500 mls @ ud IV .STK-MED ONE Sodium Chloride Confirm 01/13/25 23:54 Sodium Chloride 0.9% 500 Ml Administered 01/13/25 23:55 Dose 500 mls @ ud IV .STK-MED ONE Sodium Chloride 500 mls @ 50 mls/hr 01/14/25 08:30 01/14/25 08:54 Sodium Chloride 0.9% 500 Ml IV 01/14/25 14:29 50 mls/hr .Q10H KADEEM Administration Multi-Disciplinary Progress Notes: Multi-Disciplinary Progress Notes 01/14/25 10:13 Case Management Note by Gretchen Kaye S/W PATIENT AND SHE CONTINUES TO DENY ADDITIONAL NEEDS OR RESOURCES AT [place]. STATES SHE HAS SAFE HOME TO RETURN TO AND PLANS TO RETURN HOME WITH HER SPOUSE AND CHILDREN. Initialized on 01/14/25 10:13 - END OF NOTE Assessment/Plan (1) GI bleed Current Visit: Yes Status: Acute Assessment & Plan: S:overnight with couple hundred BRBPR with clots. no blood on pad just with bms. no real pain. no n/v. o nad nonlbaored repss nd, soft, nttp family in room declined rectal. a/p: discussed with patient options. observation, reua, ligation, hemorrhoidectomy. would really like definitive hemorrhoidectomy if that is the source. -REUA likely hemorrhoidectomy tomorrow. -npo P midnight. Code(s): K92.2 - GASTROINTESTINAL HEMORRHAGE, UNSPECIFIED
[2025-01-14] MEDS: Miralax Powder 17GM PACKET PO SCH (14:49)
[2025-01-14 17:58] LABS: HCG SERUM TEST NEGATIVE (NEGATIVE)
[2025-01-14] MEDS: Docusate Sodium 100 MG PO SCH (21:35)
[2025-01-15 04:56] LABS: BASOPHIL % 1.1 % (0.1-1.2); Basophil (Absolute #) 0.06 x10^3/uL (0.01-0.08); Eosinophil (Absolute #) 0.06 x10^3/uL (0.04-0.36); Hematocrit 28.8 % (34.1-44.9); Hemoglobin 8.8 g/dL (11.2-15.7); IMMATURE GRAN # 0.02 x10^3u/L (0.001-0.031); IMMATURE GRAN % 0.4 % (0.001-0.429); Lymphocyte (Absolute #) 1.75 x10^3/uL (1.18-3.74); Mean Corpuscular Hemoglobin 26.5 pg (25.6-32.2); Mean Corpuscular Hgb Concent. 30.6 g/dL (32.2-35.5); Monocyte (Absolute #) 0.46 x10^3/uL (0.24-0.86); NUCLEATED RBC # 0.00 x10^3u/L (0.00-0.012); NUCLEATED RBC % 0.0 % (0.00-0.2); Platelet Count 343 x10^3/uL (182-369); Red Blood Count 3.32 x10^6/uL (3.93-5.22); White Blood Count 5.4 x10^3/uL (3.98-10.04)
[2025-01-15 05:02] LABS: Calcium 8.7 mg/dL (8.4-10.2); Carbon Dioxide 23.0 mmol/L (22-30); Creatinine 1 0.56 mg/dL (0.52-1.04); EST GLOMERULAR FILTRATION RATE 121.2 ML/MIN; Glucose 92.0 mg/dL (74-106); Potassium 3.5 mmol/L (3.5-5.1); SGOT/AST 15.0 U/L (14-36); Total Protein 5.9 g/dL (6.3-8.2)
[2025-01-15 05:06] LABS: SGPT/ALT 5.0 U/L (0-35)
--- NOTE | 2025-01-15 09:04 | PCM.NOTE ---
Date and Time: 01/15/25 0857 Subjective Assessment: Ms. Maldonado is a 34-year-old female with a history of internal hemorrhoids and prediabetes, admitted for symptomatic anemia secondary to chronic rectal blood loss. The patient has reported intermittent painless hematochezia associated with straining during bowel movements, with a known history of internal hemorrhoids previously treated with banding. She initially presented with profound fatigue and lightheadedness, with a hemoglobin on admission of 5.8. She has received a total of 3 units of packed red blood cells with improvement in symptoms. Previously, surgical evaluation by Dr. Doe Dave in ED and recommended outpatient hemorrhoidectomy once stable. on 01/14/25 the patient reported continued intermittent rectal bleeding, and nursing documented a large amount of visible blood in the commode during bowel movement. Given these findings, the surgery team was re-consulted and now plan for hemorrhoidectomy 01/15/25. The patient remains stable, without ongoing symptomatic anemia. 01/15: Met with patient bedside. Endorses improvement in fatigue and no dizziness this morning. Does report continued rectal bleeding. She has received a total of 3 units LPRBCs with hemoglobin now at 8.8 (5.8). Plan for hemorrhoidectomy this afternoon. Denies fever,cough, sob, cp, abdominal pain, ALFREDO, dizziness, N/V/D. - Review of Systems Constitutional: Weakness Eyes: No Symptoms Ears, Nose, & Throat: No Symptoms Respiratory: No Symptoms Cardiac: No Symptoms Abdominal/Gastrointestinal: Hematochezia Genitourinary Symptoms: No Symptoms Musculoskeletal: No Symptoms Skin: No Symptoms Neurological: No Symptoms Psychological: No Symptoms Endocrine: No Symptoms Hematologic/Lymphatic: Anemia Immunological/Allergic: No Symptoms Objective Exam General Appearance: no apparent distress Neurologic Exam: alert, oriented x 3, cooperative Skin Exam: normal color Eye Exam: PERRL Ears, Nose, Throat Exam: normal ENT inspection Neck Exam: normal inspection Respiratory Exam: normal breath sounds, lungs clear Cardiovascular Exam: regular rate/rhythm, normal heart sounds Gastrointestinal/Abdomen Exam: soft, normal bowel sounds Extremity Exam: normal inspection Objective Data Vital Signs: Vital Signs - 24 hr Temp Pulse Resp BP Pulse Ox 01/15/25 07:12 98 F 90 16 103/63 98 01/15/25 04:00 98.5 F 88 16 102/58 98 01/14/25 23:37 98.2 F 101 H 16 110/70 99 01/14/25 19:56 99.5 F 111 H 17 114/68 99 01/14/25 15:57 98.4 F 96 H 16 107/70 100 01/14/25 11:20 98.3 F 81 16 108/71 Pain Assessment - Last Documented Pain Intensity 0 Intake and Output: Intake & Output 01/12/25 01/13/25 01/14/25 01/15/25 11:59 11:59 11:59 11:59 Intake Total 1458 1093 Balance 1458 1093 Weight 68.4 kg Lab Results: Lab Results-Last 24 Hours 01/14/25 01/14/25 01/14/25 Range/Units 04:16 04:16 09:56 WBC (3.98-10.04) x10^3/uL RBC (3.93-5.22) x10^6/uL Hgb (11.2-15.7) g/dL Hct (34.1-44.9) % MCV (79.4-94.8) fL MCH (25.6-32.2) pg MCHC (32.2-35.5) g/dL RDW (11.7-14.4) % Plt Count (182-369) x10^3/uL MPV (9.4-12.3) fL Gran % (34.0-71.1) % Immature Gran % (Auto) (0.001-0.429) % Nucleat RBC Rel Count (0.00-0.2) % Eos # (Auto) (0.04-0.36) x10^3/uL Immature Gran # (Auto) (0.001-0.031) x10^3u/L Absolute Lymphs (auto) (1.18-3.74) x10^3/uL Absolute Monos (auto) (0.24-0.86) x10^3/uL Absolute Nucleated RBC (0.00-0.012) x10^3u/L Lymphocytes % (19.3-51.7) % Monocytes % (4.7-12.5) % Eosinophils % (0.7-5.8) % Basophils % (0.1-1.2) % Absolute Granulocytes (1.56-6.13) x10^3/uL Basophils # (0.01-0.08) x10^3/uL Sodium (135-145) mmol/L Potassium (3.5-5.1) mmol/L Chloride (98-107) mmol/L Carbon Dioxide (22-30) mmol/L Anion Gap (5-15) MEQ/L BUN (7-17) mg/dL Creatinine (0.52-1.04) mg/dL Estimated GFR ML/MIN Glucose (74-106) mg/dL Calcium (8.4-10.2) mg/dL Total Bilirubin (0.2-1.3) mg/dL AST (14-36) U/L ALT (0-35) U/L Alkaline Phosphatase (38-126) U/L Serum Total Protein (6.3-8.2) g/dL Albumin (3.5-5.0) g/dL Serum HCG, Qual NEGATIVE (NEGATIVE) Beta HCG, Quant < 2.39 mIU/ml Stl Occult Blood (IFOB) POSITIVE A (NEGATIVE) 01/14/25 01/15/25 01/15/25 Range/Units 13:50 04:20 04:20 WBC 5.4 (3.98-10.04) x10^3/uL RBC 3.32 L (3.93-5.22) x10^6/uL Hgb 9.4 L D 8.8 L (11.2-15.7) g/dL Hct 30.2 L 28.8 L (34.1-44.9) % MCV 86.7 (79.4-94.8) fL MCH 26.5 (25.6-32.2) pg MCHC 30.6 L (32.2-35.5) g/dL RDW 15.6 H (11.7-14.4) % Plt Count 343 (182-369) x10^3/uL MPV 10.3 (9.4-12.3) fL Gran % 56.5 (34.0-71.1) % Immature Gran % (Auto) 0.4 (0.001-0.429) % Nucleat RBC Rel Count 0.0 (0.00-0.2) % Eos # (Auto) 0.06 (0.04-0.36) x10^3/uL Immature Gran # (Auto) 0.02 (0.001-0.031) x10^3u/L Absolute Lymphs (auto) 1.75 (1.18-3.74) x10^3/uL Absolute Monos (auto) 0.46 (0.24-0.86) x10^3/uL Absolute Nucleated RBC 0.00 (0.00-0.012) x10^3u/L Lymphocytes % 32.4 (19.3-51.7) % Monocytes % 8.5 (4.7-12.5) % Eosinophils % 1.1 (0.7-5.8) % Basophils % 1.1 (0.1-1.2) % Absolute Granulocytes 3.05 (1.56-6.13) x10^3/uL Basophils # 0.06 (0.01-0.08) x10^3/uL Sodium 137 (135-145) mmol/L Potassium 3.5 (3.5-5.1) mmol/L Chloride 108 H (98-107) mmol/L Carbon Dioxide 23 (22-30) mmol/L Anion Gap 9.3 (5-15) MEQ/L BUN 6 L (7-17) mg/dL Creatinine 0.56 (0.52-1.04) mg/dL Estimated GFR 121.2 ML/MIN Glucose 92 (74-106) mg/dL Calcium 8.7 (8.4-10.2) mg/dL Total Bilirubin 0.60 (0.2-1.3) mg/dL AST 15 (14-36) U/L ALT 5 (0-35) U/L Alkaline Phosphatase 56 (38-126) U/L Serum Total Protein 5.9 L (6.3-8.2) g/dL Albumin 3.5 (3.5-5.0) g/dL Serum HCG, Qual (NEGATIVE) Beta HCG, Quant mIU/ml Stl Occult Blood (IFOB) (NEGATIVE) Medications: Medications Generic Name Dose Route Start Last Admin Trade Name Freq PRN Reason Stop Dose Admin Acetaminophen 650 mg 01/13/25 20:04 01/13/25 21:41 Acetaminophen 325 Mg Tablet PO 02/12/25 20:03 650 mg Q6H PRN PRN Administration PAIN AND/OR FEVER Acetaminophen 1,000 mg 01/15/25 14:00 Acetaminophen 500 Mg Tablet PO 01/15/25 14:01 2HRPRIOR ONE Celecoxib 200 mg 01/15/25 14:00 Celecoxib 100 Mg Capsule PO 01/15/25 14:01 2HRPRIOR ONE Dexamethasone 8 mg 01/15/25 14:00 Dexamethasone 4 Mg Tablet PO 01/15/25 14:01 2HRPRIOR ONE Docusate Sodium 100 mg 01/14/25 22:00 01/14/25 21:35 Docusate Sodium 100 Mg Capsule PO 02/13/25 21:59 100 mg BID KADEEM Administration Ferrous Sulfate 325 mg 01/14/25 10:00 01/14/25 08:52 Ferrous Sulfate 325 Mg Tablet PO 02/13/25 09:59 325 mg DAILY KADEEM Administration Gabapentin 600 mg 01/15/25 14:00 Gabapentin 300 Mg Capsule PO 01/15/25 14:01 2HRPRIOR ONE Lactated Ringer's 1,000 mls @ 30 mls/hr 01/15/25 14:00 Lactated Ringers IV 02/14/25 13:59 .Q24H KADEEM Midazolam HCl 2 mg 01/15/25 14:00 Midazolam Hcl 2 Mg/2 Ml Vial IV 02/14/25 13:59 PRN PRN ANXIETY Polyethylene Glycol 17 gm 01/14/25 14:00 01/14/25 14:49 Polyethylene Glycol 3350 17 Gm Packet PO 02/13/25 13:59 17 gm DAILY KADEEM Administration Topiramate 25 mg 01/14/25 10:00 01/14/25 08:52 Topiramate 50 Mg Tablet PO 02/13/25 09:59 25 mg QAM KADEEM Administration Discontinued Medications Generic Name Dose Route Start Last Admin Trade Name Viry PRN Reason Stop Dose Admin Acetaminophen 650 mg 01/13/25 19:01 01/13/25 21:42 Acetaminophen 325 Mg Tablet PO 01/13/25 19:02 Not Given PRIOR TO BLOOD ONE Diphenhydramine HCl 25 mg 01/13/25 19:01 01/13/25 21:41 Diphenhydramine Hcl 25 Mg Capsule PO 01/13/25 19:02 25 mg PRIOR TO BLOOD ONE Administration Diphenhydramine HCl Confirm 01/13/25 21:48 Diphenhydramine Hcl 25 Mg Capsule Administered 01/13/25 21:49 Dose 25 mg .ROUTE .STK-MED ONE Docusate Sodium 100 mg 01/14/25 09:27 01/14/25 09:38 Docusate Sodium 100 Mg Capsule PO 01/14/25 09:28 100 mg ONCE ONE Administration Furosemide 20 mg 01/13/25 19:01 01/13/25 21:43 Furosemide 20 Mg Tablet PO 01/13/25 19:02 Not Given BETWEEN UNITS ONE Sodium Chloride Confirm 01/13/25 21:16 Sodium Chloride 0.9% 500 Ml Administered 01/13/25 21:17 Dose 500 mls @ ud IV .STK-MED ONE Sodium Chloride Confirm 01/13/25 23:54 Sodium Chloride 0.9% 500 Ml Administered 01/13/25 23:55 Dose 500 mls @ ud IV .STK-MED ONE Sodium Chloride 500 mls @ 50 mls/hr 01/14/25 08:30 01/14/25 08:54 Sodium Chloride 0.9% 500 Ml IV 01/14/25 14:29 50 mls/hr .Q10H KADEEM Administration Multi-Disciplinary Progress Notes: Multi-Disciplinary Progress Notes 01/14/25 10:13 Case Management Note by Gretchen Kaye S/W PATIENT AND SHE CONTINUES TO DENY ADDITIONAL NEEDS OR RESOURCES AT IN. STATES SHE HAS SAFE HOME TO RETURN TO AND PLANS TO RETURN HOME WITH HER SPOUSE AND CHILDREN. Initialized on 01/14/25 10:13 - END OF NOTE Assessment/Plan (1) Symptomatic anemia Current Visit: Yes Status: Acute Assessment & Plan: -Secondary to most likely internal hemorrhoids- see plan below Transfused 3 units PRBCs during hospitalization -Hgb 5.8 on admission 7.6 after transfusion with 2 units PRBCs- 3 units total ordered- 3rd unit currently transfusing -trend CBC -Pt noted with active rectal bleeding (large amount) per nursing today Monitor post-transfusion hemoglobin and clinical status Continue oral ferrous sulfate supplementation 01/15: -s/p 3 units LPRBCs with noted improvement in HGB now reviewed at 8.8 -Continues with active rectal bleeding -Surgery consulted- documentation reviewed- agree with plan for hemorrhoidectomy today -Continue to trend H&H with transfusion with hgb <7 Code(s): D64.9 - ANEMIA, UNSPECIFIED (2) Rectal bleeding Current Visit: Yes Status: Acute Assessment & Plan: Re-consulted surgery today for reassessment due to continued bleeding Monitor for hemodynamic changes or recurrent symptomatic anemia Ensure soft stool consistency to minimize straining and trauma 01/15: -see anemia above- plan for hemorrhoidectomy per surgery team today Code(s): K62.5 - HEMORRHAGE OF ANUS AND RECTUM (3) Internal hemorrhoid Current Visit: Yes Status: Acute Assessment & Plan: Previously evaluated by Dr. Doe aDve; outpatient hemorrhoidectomy planned - Patient continues with active rectal bleeding- large amount noted by nursing- surgery reconsulted- pending recommendations for intervention -HGB 5.8 on admission - 7.6 after transfusion LPRBC 2 units - (3 units ordered)- currently receiving 3rd unit Continue conservative management: stool softeners, high-fiber diet, adequate hydration Await further surgical input regarding timing of intervention 01/15: -see rectal bleeding Code(s): K64.8 - OTHER HEMORRHOIDS (4) Prediabetes Current Visit: Yes Status: Acute Assessment & Plan: Continue outpatient Trulicity regimen No glucose monitoring needed during admission due to stable glycemic status Reinforce diet and lifestyle modification; follow-up with PCP or endocrinology as outpatient Code(s): R73.03 - PREDIABETES (5) Chronic constipation Current Visit: Yes Status: Acute Assessment & Plan: Increase dietary fiber and oral hydration Consider daily stool softeners or fiber supplements as needed Avoid straining during defecation Code(s): D64.9 - ANEMIA, UNSPECIFIED (2) Rectal bleeding Current Visit: Yes Status: Acute Code(s): K62.5 - HEMORRHAGE OF ANUS AND RECTUM (3) Internal hemorrhoid Current Visit: Yes Status: Acute Code(s): K64.8 - OTHER HEMORRHOIDS (4) Prediabetes Current Visit: Yes Status: Acute Code(s): R73.03 - PREDIABETES (5) Chronic constipation Current Visit: Yes Status: Acute Code(s): K59.09 - OTHER CONSTIPATION
--- NOTE | 2025-01-15 10:30 | CONS ---
HISTORY: The patient was seen in the emergency room. She had a hemorrhoidectomy a few months ago with internal banding with Dr. Martinez apparently with a colonoscopy. She had a little improvement the next day but subsequently she has redeveloped a complaint of bright red blood per rectum. Her hemoglobin was noted at 5.7 in the emergency room. She is being admitted for transfusion. She is young and healthy otherwise, quite frail. We had her roll to the left. She has an external hemorrhoid of 7. She has an external hemorrhoid at 11. She says she is fairly tender. We did not do a finger digital examination. Her bleeding is intermittent, but it is more than just a few drops of the stool. It kind of fills the surface of the stool at times and it does look like it has contributed substantially to this anemia. I did not ask her about her menstrual history in the emergency room. IMPRESSION: Patient currently has substantial bleeding from internal hemorrhoids. I doubt that a fissure would cause this much bleeding. She has had a previous colonoscopy. She has had previous internal banding. At this time, she needs to have some transfusions, some iron supplement. I do not think anything needs to be done acutely or probably even semi-acutely. We can probably wait until her blood count is back up and she is in better condition and do her electively. PLAN: Follow up in the office with Dr. Martinez at a next [place] office visit in the next 1 to 2 weeks.
[2025-01-15] MEDS: celeBREX 100 MG PO ONE (13:50)
[2025-01-15] MEDS: NEURONTIN PO ONE (13:50)
[2025-01-15] MEDS: TYLENOL EXTRA STRENGTH 500 MG PO ONE (13:50)
[2025-01-15] MEDS: Lactated Ringers 1,000 ML IV SCH (13:50)
[2025-01-15] MEDS: Decadron 4 MG PO ONE (13:51)
[2025-01-15] MEDS ORDERED: Versed 2 MG/2 ML Injection IV PRN (14:00)
[2025-01-15] MEDS ORDERED: propofoL IV ONE (15:42)
[2025-01-15] MEDS ORDERED: Quelicin Fliptop 200 MG/10 ML ONE (15:42)
[2025-01-15] MEDS ORDERED: Zofran 4 MG/2 ML VIAL ONE ×3 (15:45→22:04)
[2025-01-15] MEDS ORDERED: ROCURONIUM BROMIDE IV ONE (15:45)
[2025-01-15] MEDS: Ativan 2 MG/1 ML VIAL IV PRN (15:46)
[2025-01-15] MEDS ORDERED: EXPAREL 133 MG/10 ML VIAL IJ ONE ×2 (16:27→16:40)
[2025-01-15] MEDS ORDERED: SUBLIMAZE 100 MCG/2 ML ONE ×2 (16:40→17:41)
[2025-01-15] MEDS ORDERED: Ephedrine Sulfate 50 MG/ML ONE (17:17)
[2025-01-15] MEDS ORDERED: DILAUDID 0.5 MG/0.5 ML SYRINGE ONE ×3 (17:49→18:12)
[2025-01-15 19:27] LABS: Hematocrit 34.0 % (34.1-44.9); Hemoglobin 9.9 g/dL (11.2-15.7)
[2025-01-15] MEDS: Zofran 4 MG/2 ML VIAL IV PRN (22:21)
[2025-01-15] MEDS: NORCO 10-325 MG PO PRN (22:57)
[2025-01-16 04:44] LABS: BASOPHIL % 0.1 % (0.1-1.2); Basophil (Absolute #) 0.01 x10^3/uL (0.01-0.08); Eosinophil (Absolute #) 0 x10^3/uL (0.04-0.36); Hematocrit 30.7 % (34.1-44.9); Hemoglobin 9.3 g/dL (11.2-15.7); IMMATURE GRAN # 0.03 x10^3u/L (0.001-0.031); IMMATURE GRAN % 0.3 % (0.001-0.429); Lymphocyte (Absolute #) 0.69 x10^3/uL (1.18-3.74); Mean Corpuscular Hemoglobin 26.8 pg (25.6-32.2); Mean Corpuscular Hgb Concent. 30.3 g/dL (32.2-35.5); Monocyte (Absolute #) 0.42 x10^3/uL (0.24-0.86); NUCLEATED RBC # 0.00 x10^3u/L (0.00-0.012); NUCLEATED RBC % 0.0 % (0.00-0.2); Platelet Count 429 x10^3/uL (182-369); Red Blood Count 3.47 x10^6/uL (3.93-5.22); White Blood Count 9.1 x10^3/uL (3.98-10.04)
[2025-01-16 05:06] LABS: Calcium 9.2 mg/dL (8.4-10.2); Carbon Dioxide 23.0 mmol/L (22-30); Creatinine 1 0.59 mg/dL (0.52-1.04); EST GLOMERULAR FILTRATION RATE 119.7 ML/MIN; Glucose 99.0 mg/dL (74-106); Potassium 4.5 mmol/L (3.5-5.1); SGOT/AST 21.0 U/L (14-36); SGPT/ALT 9.0 U/L (0-35); Total Protein 6.3 g/dL (6.3-8.2)
[2025-01-16] MEDS: Hydromorphone 1 mg/ml Injection IV PRN (10:42)
--- NOTE | 2025-01-16 12:42 | PCM.DS ---
Discharge Summary Date of Admission: 01/13/25 19:51 Date of Discharge: 01/16/25 Admitting Physician: ALVINO COMBS MD Primary Care Provider: LG MCNAMARA YONAS Allergies Allergies latex Allergy (Severe, Verified 01/13/25 16:27) Rash codeine Allergy (Verified 01/13/25 16:27) does not remember reaction Hospital Summary - Hospital Course Hospital Course: Ms. Maldonado is a 34-year-old female with a history of internal hemorrhoids, prediabetes, and chronic constipation who was admitted for symptomatic anemia secondary to chronic rectal blood loss. She presented with profound fatigue and lightheadedness, and was found to have a hemoglobin level of 5.8 on admission. She reported intermittent painless hematochezia associated with straining, consistent with a known history of internal hemorrhoids previously treated with banding. During her admission, she received 3 units of packed red blood cells, with hemoglobin improving to 9.3 at discharge. Despite transfusion and stabilization, she continued to experience episodes of rectal bleeding. Surgical consultation was reinitiated, and the patient underwent hemorrhoidectomy on 01/15/25. Post-operatively, she has remained stable, without ongoing symptomatic anemia. Her pain has been managed effectively with [place], and she was provided detailed discharge instructions for post-operative care. She will follow up with the surgical team next week. Discharge pending surgery re-evaluation and pain control. Discharge Note New Diagnosis: Rectal Bleeding New Medications: [place] Follow Up: PCP/Surgery I spent 35 minutes [id number] with the patient on the day of discharge performing discharge exam, discussing hospital stay and discharge instructions with patient and caregivers, preparation of discharge records, prescriptions & referral forms and addressing any questions/concerns the patient had as documented above. - Vitals & Intake/Output Vital Signs: Vital Signs Temperature 98.1 F 01/16/25 11:42 Pulse Rate 108 H 01/16/25 11:42 Respiratory Rate 16 01/16/25 11:42 Blood Pressure 98/63 01/16/25 11:42 O2 Sat by Pulse Oximetry 100 01/16/25 11:42 Intake & Output: Intake & Output 01/14/25 01/15/25 01/16/25 01/17/25 11:59 11:59 11:59 11:59 Intake Total 1458 1093 540 Balance 1458 1093 540 Weight 68.4 kg 68.4 kg - Lab Result Diagrams: 01/16/25 04:20 01/16/25 04:20 Lab Results-Last 24 Hrs: Lab Results-Last 24 Hours 01/15/25 01/16/25 01/16/25 Range/Units 19:10 04:20 04:20 WBC 9.1 (3.98-10.04) x10^3/uL RBC 3.47 L (3.93-5.22) x10^6/uL Hgb 9.9 L 9.3 L (11.2-15.7) g/dL Hct 34.0 L 30.7 L (34.1-44.9) % MCV 88.5 (79.4-94.8) fL MCH 26.8 (25.6-32.2) pg MCHC 30.3 L (32.2-35.5) g/dL RDW 15.6 H (11.7-14.4) % Plt Count 429 H (182-369) x10^3/uL MPV 10.1 (9.4-12.3) fL Gran % 87.4 H (34.0-71.1) % Immature Gran % (Auto) 0.3 (0.001-0.429) % Nucleat RBC Rel Count 0.0 (0.00-0.2) % Eos # (Auto) 0 L (0.04-0.36) x10^3/uL Immature Gran # (Auto) 0.03 (0.001-0.031) x10^3u/L Absolute Lymphs (auto) 0.69 L (1.18-3.74) x10^3/uL Absolute Monos (auto) 0.42 (0.24-0.86) x10^3/uL Absolute Nucleated RBC 0.00 (0.00-0.012) x10^3u/L Lymphocytes % 7.6 L (19.3-51.7) % Monocytes % 4.6 L (4.7-12.5) % Eosinophils % 0.0 L (0.7-5.8) % Basophils % 0.1 (0.1-1.2) % Absolute Granulocytes 7.96 H (1.56-6.13) x10^3/uL Basophils # 0.01 (0.01-0.08) x10^3/uL Sodium 136 (135-145) mmol/L Potassium 4.5 D (3.5-5.1) mmol/L Chloride 106 (98-107) mmol/L Carbon Dioxide 23 (22-30) mmol/L Anion Gap 12.0 (5-15) MEQ/L BUN 6 L (7-17) mg/dL Creatinine 0.59 (0.52-1.04) mg/dL Estimated GFR 119.7 ML/MIN Glucose 99 (74-106) mg/dL Calcium 9.2 (8.4-10.2) mg/dL Total Bilirubin 0.60 (0.2-1.3) mg/dL AST 21 (14-36) U/L ALT 9 (0-35) U/L Alkaline Phosphatase 62 (38-126) U/L Serum Total Protein 6.3 (6.3-8.2) g/dL Albumin 3.8 (3.5-5.0) g/dL Discharge Exam General Appearance: mild distress Neurologic Exam: alert, oriented x 3, cooperative Eye Exam: PERRL Ears, Nose, Throat Exam: normal ENT inspection Neck Exam: normal inspection Respiratory Exam: normal breath sounds, lungs clear Cardiovascular Exam: regular rate/rhythm, normal heart sounds Gastrointestinal/Abdomen Exam: soft, normal bowel sounds Pelvic Exam: deferred Back Exam: normal inspection Extremity Exam: normal inspection Skin Exam: normal color Final Diagnosis/Problem List - Final Discharge Diagnosis/Problem (1) Symptomatic anemia Current Visit: Yes Status: Acute Assessment & Plan: Secondary to chronic rectal blood loss from internal hemorrhoids Transfused 3 units PRBCs during hospitalization Hemoglobin improved from 5.8 on admission to 9.3 at discharge Continue oral ferrous sulfate supplementation 325 mg PO daily -stool softener advised Outpatient monitoring of hemoglobin with primary care provider Code(s): D64.9 - ANEMIA, UNSPECIFIED (2) Rectal bleeding Current Visit: Yes Status: Acute Assessment & Plan: Attributed to internal hemorrhoids; active bleeding noted during hospitalization Hemorrhoidectomy performed on 01/15/25 by surgical team Monitor for recurrent bleeding post-discharge Maintain stool soft consistency to prevent recurrence (Colace 100 mg PO BID as needed) Adequate oral hydration and fiber intake Code(s): K62.5 - HEMORRHAGE OF ANUS AND RECTUM (3) Internal hemorrhoid Current Visit: Yes Status: Acute Assessment & Plan: Previously known, recurrent symptomatic bleeding requiring surgical intervention Hemorrhoidectomy completed during this admission Continue conservative management post-operatively: High-fiber diet Adequate oral hydration Avoid straining during bowel movements Follow-up with surgery in one week Code(s): K64.8 - OTHER HEMORRHOIDS (4) Prediabetes Current Visit: Yes Status: Acute Assessment & Plan: Continue outpatient Trulicity regimen as previously prescribed No inpatient glucose management required during stay Reinforce diabetic diet and lifestyle modifications Follow up with PCP or endocrinology for continued outpatient care Code(s): R73.03 - PREDIABETES (5) Chronic constipation Current Visit: Yes Status: Acute Assessment & Plan: Increase dietary fiber (fruits, vegetables, whole grains) Consider regular use of stool softeners or fiber supplements Avoid straining Code(s): K59.09 - OTHER CONSTIPATION - Discharge Discharge Date: 01/16/25 Disposition: Home, Self-Care Condition: Stable Prescriptions: New Hydrocodone/Acetaminophen [Hydrocodone-Acetamin 5-325 mg] 1 - 2 tab PO Q6HPRN PRN 7 Days #56 tablet MDD 8 PRN Reason: Pain Docusate Sodium 100 mg [Docusate Sodium 100 MG] 100 mg PO BID 30 Days #60 cap Polyethylene Glycol 3350 17 gm [Miralax Powder 17GM PACKET] 17 gm PO DAILY 30 Days #30 pkt Continue Dulaglutide [Trulicity] 0.75 mg SQ WEEKLY Ferrous Sulfate 325 mg PO DAILY Vitamin E 1 tablet PO HS Topiramate 25 mg PO QAM Discontinued Phentermine HCl 37.5 mg PO QAM Instructions: Blood transfusion Follow up with: LG MCNAMARA MD [Primary Care Provider, FAMILY PRACTICE] - 01/21/25 10:15 am LENA DAWKINS [COURTESY STAFF, GENERAL SURGERY] - 01/19/25 9:55 am
--- NOTE | 2025-01-16 15:15 | PCM.NOTE ---
Date and Time: 01/16/25 1510 Subjective Assessment: Ms. Maldonado is a 34-year-old female with a history of internal hemorrhoids and prediabetes, admitted for symptomatic anemia secondary to chronic rectal blood loss. The patient has reported intermittent painless hematochezia associated with straining during bowel movements, with a known history of internal hemorrhoids previously treated with banding. She initially presented with profound fatigue and lightheadedness, with a hemoglobin on admission of 5.8. She has received a total of 3 units of packed red blood cells with improvement in symptoms. Previously, surgical evaluation by Dr. Doe Dave in ED and recommended outpatient hemorrhoidectomy once stable. on 01/14/25 the patient reported continued intermittent rectal bleeding, and nursing documented a large amount of visible blood in the commode during bowel movement. Given these findings, the surgery team was re-consulted and now plan for hemorrhoidectomy 01/15/25. The patient remains stable, without ongoing symptomatic anemia. 01/15: Met with patient bedside. Endorses improvement in fatigue and no dizziness this morning. Does report continued rectal bleeding. She has received a total of 3 units LPRBCs with hemoglobin now at 8.8 (5.8). Plan for hemorrhoidectomy this afternoon. Denies fever,cough, sob, cp, abdominal pain, ALFREDO, dizziness, N/V/D. 01/16: Patient is status-post hemorrhoidectomy and is currently post-operative day one. She endorses ongoing severe rectal pain rated 8 out of 10 on the numeric pain scale and was noted to be tearful during the interview and physical examination, reflecting significant discomfort. In response, her pain management regimen was escalated to include IV Dilaudid in addition to existing analgesics. Sitz baths were initiated to aid in local pain relief and promote wound hygiene. There is no evidence of active rectal bleeding, and her hemoglobin remains stable at 9.3. She is hemodynamically stable, tolerating oral intake, and ambulating with assistance. Discharge is pending further evaluation by the surgical team and confirmation that her pain is adequately controlled. - Review of Systems Constitutional: No Symptoms, Other (endorses rectal discomfort; tearful during exam due to pain) Eyes: No Symptoms Ears, Nose, & Throat: No Symptoms Respiratory: No Symptoms Cardiac: No Symptoms Abdominal/Gastrointestinal: Other (Reports continued rectal pain; denies nausea, vomiting, abdominal pain, or new rectal bleeding) Genitourinary Symptoms: No Symptoms Musculoskeletal: No Symptoms Skin: No Symptoms Neurological: No Symptoms Psychological: Other (Tearful, likely related to pain; no suicidal ideation or hallucinations reported) Objective Exam General Appearance: no apparent distress Neurologic Exam: alert, oriented x 3, other (tearful but cooperative, appears uncomfortable) Respiratory Exam: normal breath sounds, lungs clear Cardiovascular Exam: regular rate/rhythm, normal heart sounds Gastrointestinal/Abdomen Exam: soft, normal bowel sounds, other (Post-operative changes noted consistent with recent hemorrhoidectomy. Area appears clean with mild post-surgical edema; no signs of active bleeding or purulence) Extremity Exam: normal inspection Back Exam: normal inspection Objective Data Vital Signs: Vital Signs - 24 hr Temp Pulse Resp BP Pulse Ox 01/16/25 11:42 98.1 F 108 H 16 98/63 100 01/16/25 07:19 97.9 F 98 H 16 88/53 100 01/16/25 04:00 98.5 F 102 H 18 94/55 100 01/15/25 20:15 97.9 F 91 H 16 102/63 100 01/15/25 19:45 97.9 F 99 H 17 111/66 98 01/15/25 19:15 97.1 F 100 H 16 106/63 98 01/15/25 19:00 16 101/73 98 01/15/25 18:45 97.9 F 105 H 18 99/50 100 01/15/25 18:30 97.3 F 108 H 19 87/61 100 01/15/25 15:39 98.1 F 90 16 105/71 100 Pain Assessment - Last Documented Pain Intensity 6 Pain Scale Used 0-10 Pain Scale Intake and Output: Intake & Output 01/14/25 01/15/25 01/16/25 01/17/25 11:59 11:59 11:59 11:59 Intake Total 1458 1093 540 240 Balance 1458 1093 540 240 Weight 68.4 kg 68.4 kg Lab Results: Lab Results-Last 24 Hours 01/15/25 01/16/25 01/16/25 Range/Units 19:10 04:20 04:20 WBC 9.1 (3.98-10.04) x10^3/uL RBC 3.47 L (3.93-5.22) x10^6/uL Hgb 9.9 L 9.3 L (11.2-15.7) g/dL Hct 34.0 L 30.7 L (34.1-44.9) % MCV 88.5 (79.4-94.8) fL MCH 26.8 (25.6-32.2) pg MCHC 30.3 L (32.2-35.5) g/dL RDW 15.6 H (11.7-14.4) % Plt Count 429 H (182-369) x10^3/uL MPV 10.1 (9.4-12.3) fL Gran % 87.4 H (34.0-71.1) % Immature Gran % (Auto) 0.3 (0.001-0.429) % Nucleat RBC Rel Count 0.0 (0.00-0.2) % Eos # (Auto) 0 L (0.04-0.36) x10^3/uL Immature Gran # (Auto) 0.03 (0.001-0.031) x10^3u/L Absolute Lymphs (auto) 0.69 L (1.18-3.74) x10^3/uL Absolute Monos (auto) 0.42 (0.24-0.86) x10^3/uL Absolute Nucleated RBC 0.00 (0.00-0.012) x10^3u/L Lymphocytes % 7.6 L (19.3-51.7) % Monocytes % 4.6 L (4.7-12.5) % Eosinophils % 0.0 L (0.7-5.8) % Basophils % 0.1 (0.1-1.2) % Absolute Granulocytes 7.96 H (1.56-6.13) x10^3/uL Basophils # 0.01 (0.01-0.08) x10^3/uL Sodium 136 (135-145) mmol/L Potassium 4.5 D (3.5-5.1) mmol/L Chloride 106 (98-107) mmol/L Carbon Dioxide 23 (22-30) mmol/L Anion Gap 12.0 (5-15) MEQ/L BUN 6 L (7-17) mg/dL Creatinine 0.59 (0.52-1.04) mg/dL Estimated GFR 119.7 ML/MIN Glucose 99 (74-106) mg/dL Calcium 9.2 (8.4-10.2) mg/dL Total Bilirubin 0.60 (0.2-1.3) mg/dL AST 21 (14-36) U/L ALT 9 (0-35) U/L Alkaline Phosphatase 62 (38-126) U/L Serum Total Protein 6.3 (6.3-8.2) g/dL Albumin 3.8 (3.5-5.0) g/dL Medications: Medications Generic Name Dose Route Start Last Admin Trade Name Freq PRN Reason Stop Dose Admin Acetaminophen 650 mg 01/13/25 20:04 01/15/25 22:06 Acetaminophen 325 Mg Tablet PO 02/12/25 20:03 650 mg Q6H PRN PRN Administration PAIN AND/OR FEVER Hydrocodone Bitart/Acetaminophen 1 tablet 01/15/25 17:49 01/16/25 13:07 Hydrocodone/Acetamin 10-325 Mg Tablet PO 01/20/25 17:48 1 tablet Q4H PRN PRN Administration PAIN Docusate Sodium 100 mg 01/14/25 22:00 01/16/25 10:43 Docusate Sodium 100 Mg Capsule PO 02/13/25 21:59 100 mg BID KADEEM Administration Ferrous Sulfate 325 mg 01/14/25 10:00 01/16/25 10:43 Ferrous Sulfate 325 Mg Tablet PO 02/13/25 09:59 325 mg DAILY KADEEM Administration Hydromorphone HCl 0.25 mg 01/16/25 09:57 01/16/25 10:42 Hydromorphone 1 Mg/1ml Inj IV 01/21/25 09:56 0.25 mg Q4H PRN PRN Administration PAIN Sodium Chloride 1,000 mls @ 75 mls/hr 01/16/25 14:00 01/16/25 14:24 Sodium Chloride 0.9% 1000 Ml IV 02/15/25 13:59 75 mls/hr .[id number] KADEEM Administration Ondansetron HCl 4 mg 01/15/25 22:19 01/15/25 22:21 Ondansetron Hcl 4 Mg/2 Ml Vial IV 02/14/25 22:18 4 mg Q6H PRN PRN Administration NAUSEA/VOMITING Polyethylene Glycol 17 gm 01/14/25 14:00 01/16/25 10:43 Polyethylene Glycol 3350 17 Gm Packet PO 02/13/25 13:59 17 gm DAILY KADEEM Administration Topiramate 25 mg 01/14/25 10:00 01/16/25 10:43 Topiramate 50 Mg Tablet PO 02/13/25 09:59 25 mg QAM KADEEM Administration Terry Goodson 1 pad 01/16/25 14:41 Terry Goodson 1 Pad Med..Pad TP 02/15/25 14:40 PRN PRN PAIN Discontinued Medications Generic Name Dose Route Start Last Admin Trade Name Freq PRN Reason Stop Dose Admin Acetaminophen 650 mg 01/13/25 19:01 01/13/25 21:42 Acetaminophen 325 Mg Tablet PO 01/13/25 19:02 Not Given PRIOR TO BLOOD ONE Acetaminophen 1,000 mg 01/15/25 14:00 01/15/25 13:50 Acetaminophen 500 Mg Tablet PO 01/15/25 14:01 1,000 mg 2HRPRIOR ONE Administration Bupivacaine Liposome Confirm 01/15/25 16:27 Bupivacaine Liposome/Pf 133 Mg/10 Ml Administered 01/15/25 16:28 Dose 266 mg IJ .STK-MED ONE Bupivacaine Liposome Confirm 01/15/25 16:40 Bupivacaine Liposome/Pf 133 Mg/10 Ml Administered 01/15/25 16:41 Dose 133 mg IJ .STK-MED ONE Celecoxib 200 mg 01/15/25 14:00 01/15/25 13:50 Celecoxib 100 Mg Capsule PO 01/15/25 14:01 200 mg 2HRPRIOR ONE Administration Dexamethasone 8 mg 01/15/25 14:00 01/15/25 13:51 Dexamethasone 4 Mg Tablet PO 01/15/25 14:01 8 mg 2HRPRIOR ONE Administration Dexamethasone Sodium Phosphate Confirm 01/15/25 15:45 Dexamethasone Sodium Phosphate 4 Mg/Ml Vial Administered 01/15/25 15:46 Dose 4 mg .ROUTE .STK-MED ONE Diphenhydramine HCl 25 mg 01/13/25 19:01 01/13/25 21:41 Diphenhydramine Hcl 25 Mg Capsule PO 01/13/25 19:02 25 mg PRIOR TO BLOOD ONE Administration Diphenhydramine HCl Confirm 01/13/25 21:48 Diphenhydramine Hcl 25 Mg Capsule Administered 01/13/25 21:49 Dose 25 mg .ROUTE .STK-MED ONE Docusate Sodium 100 mg 01/14/25 09:27 01/14/25 09:38 Docusate Sodium 100 Mg Capsule PO 01/14/25 09:28 100 mg ONCE ONE Administration Ephedrine Sulfate Confirm 01/15/25 17:17 Ephedrine Sulfate 50 Mg/Ml Administered 01/15/25 17:18 Dose 50 mg .ROUTE .STK-MED ONE Fentanyl Citrate Confirm 01/15/25 16:40 Fentanyl Citrate 100 Mcg/2 Ml* Vial Administered 01/15/25 16:41 Dose 100 mcg .ROUTE .STK-MED ONE Fentanyl Citrate Confirm 01/15/25 17:41 Fentanyl Citrate 100 Mcg/2 Ml* Vial Administered 01/15/25 17:42 Dose 100 mcg .ROUTE .STK-MED ONE Furosemide 20 mg 01/13/25 19:01 01/13/25 21:43 Furosemide 20 Mg Tablet PO 01/13/25 19:02 Not Given BETWEEN UNITS ONE Gabapentin 600 mg 01/15/25 14:00 01/15/25 13:50 Gabapentin 300 Mg Capsule PO 01/15/25 14:01 600 mg 2HRPRIOR ONE Administration Hydromorphone HCl Confirm 01/15/25 17:49 Hydromorphone Hcl/Pf 0.5 Mg/0.5 Ml Syringe Administered 01/15/25 17:50 Dose 0.5 mg .ROUTE .STK-MED ONE Hydromorphone HCl Confirm 01/15/25 18:01 Hydromorphone Hcl/Pf 0.5 Mg/0.5 Ml Syringe Administered 01/15/25 18:02 Dose 0.5 mg .ROUTE .STK-MED ONE Hydromorphone HCl Confirm 01/15/25 18:12 Hydromorphone Hcl/Pf 0.5 Mg/0.5 Ml Syringe Administered 01/15/25 18:13 Dose 1 mg .ROUTE .STK-MED ONE Sodium Chloride Confirm 01/13/25 21:16 Sodium Chloride 0.9% 500 Ml Administered 01/13/25 21:17 Dose 500 mls @ ud IV .STK-MED ONE Sodium Chloride Confirm 01/13/25 23:54 Sodium Chloride 0.9% 500 Ml Administered 01/13/25 23:55 Dose 500 mls @ ud IV .STK-MED ONE Sodium Chloride 500 mls @ 50 mls/hr 01/14/25 08:30 01/14/25 08:54 Sodium Chloride 0.9% 500 Ml IV 01/14/25 14:29 50 mls/hr .Q10H KADEEM Administration Lactated Ringer's 1,000 mls @ 30 mls/hr 01/15/25 14:00 01/15/25 13:50 Lactated Ringers IV 02/14/25 13:59 30 mls/hr .Q24H KADEEM Administration Sodium Chloride 500 mls @ 500 mls/hr 01/16/25 09:58 01/16/25 10:42 Sodium Chloride 0.9% 500 Ml IV 01/16/25 10:57 500 mls/hr .Q1H ONE Administration Lorazepam 1 mg 01/15/25 10:49 01/15/25 15:46 Lorazepam 2 Mg/1 Ml 2 Mg Vial IV 1 mg 1XONLY PRN Administration ANXIETY Midazolam HCl 2 mg 01/15/25 14:00 Midazolam Hcl 2 Mg/2 Ml Vial IV 02/14/25 13:59 PRN PRN ANXIETY Ondansetron HCl Confirm 01/15/25 15:45 Ondansetron Hcl 4 Mg/2 Ml Vial Administered 01/15/25 15:46 Dose 4 mg .ROUTE .STK-MED ONE Ondansetron HCl Confirm 01/15/25 17:37 Ondansetron Hcl 4 Mg/2 Ml Vial Administered 01/15/25 17:38 Dose 4 mg .ROUTE .STK-MED ONE Ondansetron HCl Confirm 01/15/25 22:04 Ondansetron Hcl 4 Mg/2 Ml Vial Administered 01/15/25 22:05 Dose 4 mg .ROUTE .STK-MED ONE Propofol Confirm 01/15/25 15:42 Propofol 200 Mg/20 Ml Vial Administered 01/15/25 15:43 Dose 200 mg IV .STK-MED ONE Rocuronium [place] Confirm 01/15/25 15:45 Rocuronium [place] 50 Mg/5 Ml Vial Administered 01/15/25 15:46 Dose 50 mg IV .STK-MED ONE Succinylcholine Chloride Confirm 01/15/25 15:42 Succinylcholine Chloride 200mg/10 Ml Vial Administered 01/15/25 15:43 Dose 200 mg .ROUTE .STK-MED ONE Multi-Disciplinary Progress Notes: Multi-Disciplinary Progress Notes 01/16/25 11:54 Case Management Note by Ruba Ceja S/W PATIENT- SHE CONTINUES TO DENY ANY NEW NEEDS AT TIME OF DC. SHE PLANS TO RETURN HOME WITH HER SPOUSE Initialized on 01/16/25 11:54 - END OF NOTE Assessment/Plan (1) Symptomatic anemia Current Visit: Yes Status: Acute Assessment & Plan: -Secondary to most likely internal hemorrhoids- see plan below Transfused 3 units PRBCs during hospitalization -Hgb 5.8 on admission 7.6 after transfusion with 2 units PRBCs- 3 units total ordered- 3rd unit currently transfusing -trend CBC -Pt noted with active rectal bleeding (large amount) per nursing today Monitor post-transfusion hemoglobin and clinical status Continue oral ferrous sulfate supplementation 01/15: -s/p 3 units LPRBCs with noted improvement in HGB now reviewed at 8.8 -Continues with active rectal bleeding -Surgery consulted- documentation reviewed- agree with plan for hemorrhoidectomy today -Continue to trend H&H with transfusion with hgb <7 01/16: -CBC reviewed with hemoglobin stable at 9.3 -No reported rectal bleeding -POD#1 hemorrhoidectomy -continue ferrous sulfate/stool softener Code(s): D64.9 - ANEMIA, UNSPECIFIED (2) Rectal bleeding Current Visit: Yes Status: Acute Assessment & Plan: Re-consulted surgery today for reassessment due to continued bleeding Monitor for hemodynamic changes or recurrent symptomatic anemia Ensure soft stool consistency to minimize straining and trauma 01/15: -see anemia above- plan for hemorrhoidectomy per surgery team today 01/16: -CMP/CBC reviewed -Surgery following -POD#1 hemorrhoidectomy- pain uncontrolled - will add diluadid - sitz bath- tucks -Monitor BP closely for hypotension -continue docusate/miralax Code(s): K62.5 - HEMORRHAGE OF ANUS AND RECTUM (3) Internal hemorrhoid Current Visit: Yes Status: Acute Assessment & Plan: Previously evaluated by Dr. Doe Dave; outpatient hemorrhoidectomy planned - Patient continues with active rectal bleeding- large amount noted by nursing- surgery reconsulted- pending recommendations for intervention -HGB 5.8 on admission - 7.6 after transfusion LPRBC 2 units - (3 units ordered)- currently receiving 3rd unit Continue conservative management: stool softeners, high-fiber diet, adequate hydration Await further surgical input regarding timing of intervention 01/15: -see rectal bleeding Code(s): K64.8 - OTHER HEMORRHOIDS (4) Prediabetes Current Visit: Yes Status: Acute Assessment & Plan: Continue outpatient Trulicity regimen No glucose monitoring needed during admission due to stable glycemic status Reinforce diet and lifestyle modification; follow-up with PCP or endocrinology as outpatient Code(s): R73.03 - PREDIABETES (5) Chronic constipation Current Visit: Yes Status: Acute Assessment & Plan: Increase dietary fiber and oral hydration Consider daily stool softeners or fiber supplements as needed Avoid straining during defecation Code(s): D64.9 - ANEMIA, UNSPECIFIED (2) Rectal bleeding Current Visit: Yes Status: Acute Code(s): K62.5 - HEMORRHAGE OF ANUS AND RECTUM (3) Internal hemorrhoid Current Visit: Yes Status: Acute Code(s): K64.8 - OTHER HEMORRHOIDS (4) Prediabetes Current Visit: Yes Status: Acute Code(s): R73.03 - PREDIABETES (5) Chronic constipation Current Visit: Yes Status: Acute Code(s): K59.09 - OTHER CONSTIPATION
[2025-01-16] MEDS: Dermoplast Spray TP PRN (15:30)
[2025-01-16] MEDS: TUCKS TP PRN (15:30)
[2025-01-16] MEDS ORDERED: Narcan 0.4 MG/ML IV PRN (15:48)
--- NOTE | 2025-01-17 05:11 | PCM.DS ---
Discharge Summary Date of Admission: 01/13/25 19:51 Date of Discharge: 01/17/25 Admitting Physician: ALVINO COMBS MD Consults: Consults on Case 01/14/25 14:00 Consult Surgery ROUTINE Primary Care Provider: LG MCNAMARA YONAS Allergies Allergies latex Allergy (Severe, Verified 01/13/25 16:27) Rash codeine Allergy (Verified 01/13/25 16:27) does not remember reaction Hospital Summary - Hospital Course Hospital Course: Ms. Maldonado is a 34-year-old female with a medical history significant for internal hemorrhoids, chronic constipation, and prediabetes who was admitted on January 13, 2025, for symptomatic anemia secondary to chronic rectal bleeding. She initially presented to the emergency department with profound fatigue, lightheadedness, and a several-week history of painless hematochezia, particularly with straining during bowel movements. The bleeding was attributed to recurrent internal hemorrhoids, previously treated with banding. On presentation, she was found to be hemodynamically stable but severely anemic, with a hemoglobin of 5.8 g/dL. She was transfused a total of three units of leukocyte-poor packed red blood cells (LPRBCs), with subsequent improvement in symptoms and hemoglobin levels, which makayla to 9.3 g/dL by the time of discharge. On January 14, the patient reported continued intermittent rectal bleeding, and nursing documented a large volume of visible blood in the commode during a bowel movement. Given this, general surgery was reconsulted. She had previously been evaluated in the emergency department by Dr. Doe Dave, who recommended outpatient surgical intervention; however, in light of continued active bleeding and her transfusion-dependent anemia, surgery recommended proceeding with definitive intervention during the same admission. On January 15, she underwent an uncomplicated hemorrhoidectomy. In the immediate post-operative period, she experienced significant rectal pain, which she rated as 8 out of 10, and was visibly tearful during examination. Her pain regimen was escalated to include intravenous Dilaudid, and sitz baths were initiated for both pain control and wound hygiene. Throughout the hospitalization, her laboratory studies were closely monitored. Her initial hemoglobin of 5.8 g/dL improved to 7.6 g/dL after two units of PRBCs and further makayla to 8.8 g/dL following the third unit. By the morning of discharge, her hemoglobin was stable at 9.3 g/dL. Her white blood cell count and platelet levels remained within normal limits, and her comprehensive metabolic panel was unremarkable. At the time of discharge on January 17, 2025, the patient was post-operative day two from hemorrhoidectomy. She was hemodynamically stable, afebrile, tolerating a regular diet, ambulating with minimal assistance, and had no evidence of recurrent rectal bleeding. Her pain was improving but remained moderate in intensity and was managed with oral analgesics. Her anemia was stable and no further transfusions were indicated. She has been cleared by surgery and discharged home in stable condition. I spent 35 minutes [id number] with the patient on the day of discharge performing discharge exam, discussing hospital stay and discharge instructions with patient and caregivers, preparation of discharge records, prescriptions & referral forms and addressing any questions/concerns the patient had as documented above. - Vitals & Intake/Output Vital Signs: Vital Signs Temperature 98.6 F 01/17/25 04:00 Pulse Rate 99 H 01/17/25 04:00 Respiratory Rate 16 01/17/25 04:00 Blood Pressure 103/65 01/17/25 04:00 O2 Sat by Pulse Oximetry 96 01/17/25 04:00 Intake & Output: Intake & Output 01/14/25 01/15/25 01/16/25 01/17/25 11:59 11:59 11:59 11:59 Intake Total 1458 5861 687 0980 Balance 1458 2232 268 1677 Weight 68.4 kg 68.4 kg - Lab Result Diagrams: 01/17/25 05:35 01/17/25 05:35 Lab Results-Last 24 Hrs: Lab Results-Last 24 Hours 01/16/25 Range/Units 04:20 Sodium 136 (135-145) mmol/L Potassium 4.5 D (3.5-5.1) mmol/L Chloride 106 (98-107) mmol/L Carbon Dioxide 23 (22-30) mmol/L Anion Gap 12.0 (5-15) MEQ/L BUN 6 L (7-17) mg/dL Creatinine 0.59 (0.52-1.04) mg/dL Estimated GFR 119.7 ML/MIN Glucose 99 (74-106) mg/dL Calcium 9.2 (8.4-10.2) mg/dL Total Bilirubin 0.60 (0.2-1.3) mg/dL AST 21 (14-36) U/L ALT 9 (0-35) U/L Alkaline Phosphatase 62 (38-126) U/L Serum Total Protein 6.3 (6.3-8.2) g/dL Albumin 3.8 (3.5-5.0) g/dL Discharge Exam General Appearance: no apparent distress Neurologic Exam: alert, oriented x 3, cooperative Eye Exam: PERRL Ears, Nose, Throat Exam: normal ENT inspection Neck Exam: normal inspection Respiratory Exam: normal breath sounds, lungs clear Cardiovascular Exam: regular rate/rhythm, normal heart sounds Gastrointestinal/Abdomen Exam: soft, normal bowel sounds Final Diagnosis/Problem List - Final Discharge Diagnosis/Problem (1) Symptomatic anemia Current Visit: Yes Status: Acute Assessment & Plan: Secondary to internal hemorrhoids Hemorrhoidectomy performed 01/14/25 s/p 3 units LPRBC- hemoglobin stable Hgb dropped during admission without signs of overt bleeding after patient received significant IV fluid resuscitation, and drop attributed to hemodilution. Hemodynamically stable with no clinical signs of bleeding. Ferrous sulfate 325 mg PO daily with food Avoid NSAIDs long-term Follow up Sunday with surgery and early next week with PCP Code(s): D64.9 - ANEMIA, UNSPECIFIED (2) Rectal bleeding Current Visit: Yes Status: Acute Assessment & Plan: see above Code(s): K62.5 - HEMORRHAGE OF ANUS AND RECTUM (3) Internal hemorrhoid Current Visit: Yes Status: Acute Assessment & Plan: see above Code(s): K64.8 - OTHER HEMORRHOIDS (4) Prediabetes Current Visit: Yes Status: Acute Assessment & Plan: Continue Trulicity 1.5 mg subcutaneously weekly as prescribed Code(s): R73.03 - PREDIABETES (5) Chronic constipation Current Visit: Yes Status: Acute Assessment & Plan: Docusate sodium 100 mg PO BID Miralax (polyethylene glycol) 17g PO daily Encourage daily bowel movements without straining Code(s): K59.09 - OTHER CONSTIPATION (6) Status post hemorrhoidectomy Current Visit: Yes Status: Acute Assessment & Plan: Sitz baths three times daily and after bowel movements Apply witch daron pads (Tucks) PRN for comfort Continue high-fiber diet and oral hydration Avoid straining during defecation Pain control with [facility]: Within 1 week for post-op wound check Code(s): Z98.890 - OTHER SPECIFIED POSTPROCEDURAL STATES; Z87.19 - PERSONAL HISTORY OF OTHER DISEASES OF THE DIGESTIVE SYSTEM - Discharge Discharge Date: 01/17/25 Disposition: Home, Self-Care Condition: Stable Prescriptions: New Hydrocodone/Acetaminophen [Hydrocodone-Acetamin 5-325 mg] 1 - 2 tab PO Q6HPRN PRN 7 Days #56 tablet MDD 8 PRN Reason: Pain Docusate Sodium 100 mg [Docusate Sodium 100 MG] 100 mg PO BID 30 Days #60 cap Polyethylene Glycol 3350 17 gm [Miralax Powder 17GM PACKET] 17 gm PO DAILY 30 Days #30 pkt Benzocaine/Lanolin/Aloe Vera [Dermoplast [place]] 0.5 gm TP UD PRN PRN Reason: Pain Witch Daron [Tucks] 1 pad TP PRN PRN 30 Days #30 pad PRN Reason: Pain Continue Dulaglutide [Trulicity] 0.75 mg SQ WEEKLY Ferrous Sulfate 325 mg PO DAILY Vitamin E 1 tablet PO HS Topiramate 25 mg PO QAM Discontinued Phentermine HCl 37.5 mg PO QAM Instructions: Blood transfusion Follow up with: LG MCNAMARA MD [Primary Care Provider, FAMILY PRACTICE] - 01/21/25 10:15 am LENA DAWKINS [COURTESY STAFF, GENERAL SURGERY] - 01/19/25 9:55 am
[2025-01-17 06:22] LABS: BASOPHIL % 0.3 % (0.1-1.2); Basophil (Absolute #) 0.02 x10^3/uL (0.01-0.08); Eosinophil (Absolute #) 0.02 x10^3/uL (0.04-0.36); Hematocrit 25.8 % (34.1-44.9); Hemoglobin 7.7 g/dL (11.2-15.7); IMMATURE GRAN # 0.02 x10^3u/L (0.001-0.031); IMMATURE GRAN % 0.3 % (0.001-0.429); Lymphocyte (Absolute #) 1.03 x10^3/uL (1.18-3.74); Mean Corpuscular Hemoglobin 27.1 pg (25.6-32.2); Mean Corpuscular Hgb Concent. 29.8 g/dL (32.2-35.5); Monocyte (Absolute #) 0.56 x10^3/uL (0.24-0.86); NUCLEATED RBC # 0.00 x10^3u/L (0.00-0.012); NUCLEATED RBC % 0.0 % (0.00-0.2); Platelet Count 350 x10^3/uL (182-369); Red Blood Count 2.84 x10^6/uL (3.93-5.22); White Blood Count 7.1 x10^3/uL (3.98-10.04)
[2025-01-17 06:58] LABS: Calcium 8.5 mg/dL (8.4-10.2); Carbon Dioxide 22.0 mmol/L (22-30); Creatinine 1 0.64 mg/dL (0.52-1.04); EST GLOMERULAR FILTRATION RATE 117.4 ML/MIN; Glucose 90.0 mg/dL (74-106); Potassium 3.4 mmol/L (3.5-5.1); SGOT/AST 22.0 U/L (14-36); SGPT/ALT 6.0 U/L (0-35); Total Protein 5.5 g/dL (6.3-8.2)
[2025-01-17 07:26] VITALS: BP 108/66; PULSE 94; RESP 17; TEMP 97.8; O2SAT 97
[2025-01-17] MEDS: Klor Con PO ONE (07:48)
--- NOTE | 2025-01-19 09:02 | OP ---
SURGERY DATE/TIME: 01/15/2025 [id number] PREOPERATIVE DIAGNOSIS: Bleeding hemorrhoids. POSTOPERATIVE DIAGNOSIS: Bleeding hemorrhoids. PROCEDURES: 1) Rectal examination under anesthesia. 2) Hemorrhoidectomy in 2 columns. 3) Ligation of internal hemorrhoids in 1 column. SURGEON: Liam Dave MD ANESTHESIA: General. ESTIMATED BLOOD LOSS: Minimal. PATIENT CONDITION: Stable. COMPLICATIONS: None. SPECIMEN: Hemorrhoid, right posterior, right anterior. INDICATIONS: Patient is a 34-year-old female who presents again with a bleeding hemorrhoid. She has had internal ligation x2 without any success. She has been admitted to the hospital for this and expected conservative management; however, she is having ongoing bleeding with any attempted bowel movements, a couple hundred milliliters of blood at a time. She has external hemorrhoids on examination. I had a discussion with patient. Recommendation for rectal exam under anesthesia. Definitive management would be hemorrhoidectomy. Risk of acute pain, chronic pain, anal stenosis, recurrence discussed. She really does need to be on an adequate bowel regimen regardless, but she does want to proceed with hemorrhoidectomy. FINDINGS: Obvious right posterior bleeding hemorrhoidal column with ulceration. Hemorrhoidectomy in 2 columns, right anterior, right posterior, left lateral. Has no significant external component, just internalization. DESCRIPTION OF PROCEDURE AND FINDINGS: Patient was brought to the operating room. General anesthesia induced. Routinely positioned in prone chan-knife, prepped and draped. Time-out performed. External examination with 2 nonthrombosed external hemorrhoids on the right side. The left side is minimal external disease. The small Echeverria-Hill is inserted. Large Echeverria-Hill inserted. The anorectum is examined. Findings as above. The right posterior has obvious bleeding ulcerated area with some clot on it, so the Allis is used to grab the right posterior hemorrhoidal column and incise with scissors. Hemorrhoidal plexus dissected off the sphincter muscle. Clamp applied. Excised the internal portion. Closed with running 2-0 chromic suture, and then the external portion closed with 3-0 Monocryl suture. The base is additionally ligated with 2-0 chromic. Totally hemostatic, satisfactory. Similarly, the right anterior column is excised and sutured. The anorectum still accommodates the medium-large Echeverria-Hill retractor. The left side is significantly less diseased, but the internal hemorrhoidal column is ligated with 0 chromic suture. At that point is hemostatic, satisfactory. The anal block performed with Exparel. Gelfoam plug inserted. Dressing applied. All counts were correct. The patient tolerated the procedure well and was extubated and taken to Recovery in stable condition.
== END 2025-01-17 11:44 | disposition home or self-care (01) ==
LOC: ED 16:00 → MED SURG 19:51
PROVIDERS: ADMIT Internal Medicine; ATTEND Internal Medicine
DX: D64.9 Anemia, unspecified (principal); K64.8 Other hemorrhoids; K62.5 Hemorrhage of anus and rectum; R73.03 Prediabetes; K59.09 Other constipation; Z87.19 Personal history of other diseases of the digestive system; Z79.899 Other long term (current) drug therapy
CPT/HCPCS: 36415; 36430; 46260; 80048; 80053; 84132; 84702; 84703; 85014; 85018; 85025; 85027; 86850; 86900; 86901; 86922; 93268; 99285; G0328; G0378; P9016; Q3014